=== PATIENT | female | born 1940 | race Caucasian/White ===

== ENCOUNTER → 2017-05-09 | Outpatient (CLI) | payer BC ==
[~2017-05-09] MED LIST: ALLDSR/24 PO; ASMTWH INH; IBUP600T44 PO; MOME50SP5; SNG10 PO
== END | disposition home or self-care (01) ==
LOC: C.PAPS 12:03
PROVIDERS: ATTEND Obstetrics & Gynecology
DX: Z01.419 Encounter for gynecological examination (general) (routine) without abnormal findings (principal)

== ENCOUNTER → 2017-06-24 | Outpatient (CLI) | payer BC ==
--- NOTE | 2017-06-24 15:37 | MAMMOGRAPHY REPORT ---
BILATERAL DIGITAL SCREENING MAMMOGRAM WITH CAD: 06/24/2017 CLINICAL HISTORY: Routine screening. Patient has no complaints. TECHNIQUE: Current study was also evaluated with a Computer Aided Detection (CAD) system. Bilateral CC and MLO views were obtained. COMPARISON: Comparison is made to exams dated: 06/22/2016 mammogram, 06/19/2015 mammogram, 4 mammogram, 06/15/2013 mammogram, 06/14/2012 mammogram, and 06/11/2011 mammogram - [facility]. BREAST COMPOSITION: The tissue of both breasts is heterogeneously dense, which may obscure small mas ses. FINDINGS: No suspicious masses, calcifications, or areas of architectural distortion are noted in ei ther breast. There has been no significant interval change compared to prior exams. IMPRESSION: ACR BI-RADS CATEGORY 1: NEGATIVE There is no mammographic evidence of malignancy. A 1 year screening mammogram is recommended. The pa tient will receive written notification of the results. Approximately 10% of breast cancers are not detected with mammography. A negative mammographic report should not delay biopsy if a clinically suggestive mass is present. Yesy Escalera M.D. /:06/24/2017 12:10:05 Drip Molder: Joanna STOKES(Jomar)(Mateo)(BD), [facility] letter sent: Normal 1/2 BI-RADS Code: ACR BI-RADS Category 1: Negative
== END | disposition home or self-care (01) ==
LOC: C.MAMM 08:36
PROVIDERS: ATTEND Obstetrics & Gynecology
DX: Z12.31 Encounter for screening mammogram for malignant neoplasm of breast (principal)

== ENCOUNTER → 2017-07-08 | Outpatient (CLI) | payer BC | END | disposition home or self-care (01) | LOC: C.RDSM 10:44 | PROVIDERS: ATTEND Physical Medicine & Rehabilitation Sports Medicine | DX: M79.641 Pain in right hand (principal) ==

== ENCOUNTER → 2017-09-05 | Outpatient (CLI) | payer BC | END | disposition home or self-care (01) | LOC: C.RDSM 18:08 | PROVIDERS: ATTEND Physical Medicine & Rehabilitation Sports Medicine | DX: M25.512 Pain in left shoulder (principal) ==

== ENCOUNTER 2021-03-10 10:51 | Observation (INO) ==
[2021-03-10 11:33] LABS: Basophils # (auto) 0.01 K/uL (0-0.2); Basophils % (auto) 0.2 %; Eosinophils # (auto) 0.05 K/uL (0-0.5); Eosinophils % (auto) 0.9 %; Hematocrit (blood only) 40.1 % (37-47); Hemoglobin 13.2 g/dL (12.0-16.0); Lymphocytes # (auto) 1.81 K/uL (1.2-3.4); Lymphocytes % (auto) 33.6 %; Mean Corpuscular Hemoglobin 30.3 pg (25-34); Mean Corpuscular Hgb Conc 32.9 g/dL (32-36); Mean Corpuscular Volume 92.2 fL (80-100); Mean Platelet Volume 10.2 fL (7.4-10.4); Monocytes % (auto) 9.3 %; Neutrophils # (auto) 3.02 K/uL (1.4-6.5); Platelet Count 168 K/uL (130-400); RDW Coefficient of Variation 13.6 % (11.5-14.5); RDW Standard Deviation 45.9 fL (36.4-46.3); Red Blood Count 4.35 M/uL (4.2-5.4); White Blood Count 5.39 K/uL (4.8-10.8)
[2021-03-10 11:39] LABS: Partial Thromboplastin Ratio 0.9; Partial Thromboplastin Time 22.6 Seconds (21.0-31.0); Prothrombin Time 9.8 Seconds (9.0-12.0)
[2021-03-10 11:46] LABS: BUN Creatinine Ratio 28.2 (10-20); Blood Urea Nitrogen 25 mg/dl (7-18); Calcium 9.7 mg/dl (8.5-10.1); Carbon Dioxide 28 mmol/L (21-32); Chloride 106 mmol/L (98-107); Creatinine Clr Calc Pharmacy 39.3 ml/min; Est GFR (African American) 72.4 ml/min; Est GFR (Non-African American) 62.5 ml/min; Glucose 94 mg/dl (70-99); Lipase 200 U/L (73-393); Sodium 136 mmol/L (136-145)
[2021-03-10 11:50] LABS: Troponin I < 0.015 ng/ml (0-0.045)
[2021-03-10 11:56] LABS: D Dimer 820 ug/L FEU (0-500)
--- NOTE | 2021-03-10 12:23 | XRay Report ---
XR chest 1V portable HISTORY: 81 years-old Female Chest Pain acute atypical chest pain COMPARISON: 03/21/2011 TECHNIQUE: Portable AP view of the chest FINDINGS: Cardiomediastinal and hilar silhouettes are within normal limits. No pneumothorax, pleural effusion, airspace consolidation or overt pulmonary edema. Bones appear grossly intact. IMPRESSION: No acute process. ACT 112: Negative or not required by law. The above report was generated using voice recognition software. It may contain grammatical, syntax o r spelling errors. Electronically signed by: Mert Tanner M.D. 03/10/2021 12:21 PM
[2021-03-10] MEDS ORDERED: OPTIRAY 320 125ml IV ONE (12:49)
--- NOTE | 2021-03-10 13:06 | CT Scan Report ---
CT ANGIOGRAPHY OF THE CHEST, PULMONARY EMBOLUS PROTOCOL CLINICAL HISTORY: Mid chest pain radiating to back. Evaluate for pulmonary embolus. COMPARISON STUDY: Chest radiograph March 21, 2011 and March 10, 2021. TECHNIQUE: Following IV administration of 106 mL of Optiray, helical axial images of the chest were o btained utilizing the pulmonary embolus protocol. Maximal intensity projections and sagittal and cor onal reformats were viewed on an independent 3D workstation. IV contrast was administered without co mplication. Automated exposure control was utilized for the study. A dose lowering technique was ut ilized adhering to the principles of ALARA. CT DOSE: 295.76 mGycm FINDINGS: No pulmonary emboli are identified. There is no thoracic aortic dissection. The size of th e heart is normal. There is no pericardial effusion. No enlarged thoracic lymph nodes are present. Th ere is no consolidation to suggest pneumonia. There is a 4 mm solid right upper lobe nodule on image 145 of 283. No pneumothorax or pleural effusion is noted. No acute fracture or suspicious lesion is i dentified within visualized portions of the bony thorax. Upper abdomen is unremarkable on this exam. IMPRESSION: 1. No pleural emboli identified. 2. No thoracic aortic dissection. 3. No acute process within the chest. 4. 4 mm right upper lobe nodule. This is likely benign. A follow-up chest CT in [address] ability is recommended. ACT 112: Negative or not required by law. Electronically signed by: Diallo Jackson M.D. 03/10/2021 1:05 PM
--- NOTE | 2021-03-10 13:37 | Emergency Department Note ---
History of Present Illness General Chief Complaint: Chest Pain Stated Complaint: CHEST PAIN, RADIATES TO SHOULDER BLADES Time Seen by Provider: 03/10/21 11:00 History of Present Illness Provider Complaint: chest pain Time: 08:30 Duration: improved Onset: during rest Pain Location: substernal Pain Radiation: back Severity: moderate Maximum Pain Intensity: 8 Current Pain Intensity: 2 Quality: + heaviness Relieved By: + nothing Exacerbated By: + nothing Context: no recent illness, no recent surgery, no recent immobilization, no recent travel, no trauma/injury or no history of DVT/PE Associated symptoms: + dyspnea; no nausea, no vomiting, no diaphoresis, no syncope, no palpitations, no fever, no cough or no leg swelling Home Medications Medication Instructions Recorded Confirmed Type calcium carbonate 600 mg (1,500 1 tab PO BID tab 05/04/19 03/10/21 History mg)-vitamin D3 200 unit tablet celecoxib 100 mg capsule 100 mg PO DAILY PRN cap 05/04/19 03/10/21 History coenzyme Q10 100 mg capsule 100 mg PO HS cap 05/04/19 03/10/21 History levalbuterol tartrate 45 4 puffs INH Q20M PRN 05/04/19 03/10/21 History mcg/actuation aerosol inhaler (Xopenex HFA) multivit with min-folic 1 tab PO .DAILY@NOON,HS 05/04/19 03/10/21 History acid-lutein 400 mcg-250 mcg chewable tablet (Centrum Silver) rosuvastatin 10 mg tablet 10 mg PO QAM tab 05/04/19 03/10/21 History sodium chloride 0.65 % nasal spray 1 spray INTRANASAL HS ml 05/04/19 03/10/21 History aerosol conjugated estrogens 0.625 mg/gram 0.625 mg PV ONCE #30 gm 06/21/19 03/10/21 Rx vaginal cream (Premarin) montelukast 10 mg tablet 10 mg PO QPM #30 tab 06/21/19 03/10/21 Rx (Singulair) triamcinolone acetonide 0.1 % 1 appln TOP DAILY #15 gm 06/21/19 03/10/21 Rx topical cream cranberry 400 mg capsule 400 mg PO DAILY 03/10/21 03/10/21 History diclofenac sodium 1 % topical gel 2 g TOPICAL TID PRN 03/10/21 03/10/21 History fexofenadine 180 mg tablet 180 mg PO DAILY 03/10/21 03/10/21 History (Rachel Allergy) mometasone (Asmanex Twisthaler) 1 inh INHALATION HS 03/10/21 03/10/21 History turmeric root extract 1,053 mg 1,076 mg PO DAILY 03/10/21 03/10/21 History tablet Allergies Allergy/AdvReac Type Severity Reaction Status Date / Time Penicillins Allergy Mild RASH Verified 03/10/21 12:05 epinephrine Allergy Unknown ` Verified 03/10/21 12:05 Past Med/Surg History Medical History Hx of breast lump Hx of diverticulitis of colon Surgical History S/P cholecystectomy S/P tonsillectomy and adenoidectomy Family History Father Aortic valve replaced Coronary heart disease Alzheimer disease Diabetes Mother Diabetes Dementia Social History Smoking Status: Never smoker Feels Safe at Home: Yes Review of Systems A total of 10 systems reviewed and were otherwise negative Physical Exam Vital Signs Vital Signs - 24 hr 03/10/21 10:54 03/10/21 11:06 03/10/21 11:30 Temperature 36.7 C Temperature Source Temporal Artery Scan Pulse Rate 60 59 L 52 L Pulse Rate from SpO2 Sensor 53 L Respiratory Rate 18 21 12 Blood Pressure 154/89 H 159/90 H 133/66 Blood Pressure Mean 110 113 88 Pulse Oximetry 100 100 100 Oxygen Delivery Method Room Air Sepsis Recent Fever Within 48 Hours No Sepsis New/Unexplained Change in Mental Status No Sepsis Action Taken by Nursing No Action Required 03/10/21 12:00 03/10/21 12:30 03/10/21 13:00 Temperature Temperature Source Pulse Rate 53 L 50 L 54 L Pulse Rate from SpO2 Sensor 52 L 51 L Respiratory Rate 14 13 14 Blood Pressure 116/64 135/65 123/71 Blood Pressure Mean 81 88 88 Pulse Oximetry 100 100 Oxygen Delivery Method Sepsis Recent Fever Within 48 Hours Sepsis New/Unexplained Change in Mental Status Sepsis Action Taken by Nursing Physical Exam GENERAL: She is oriented to person, place, and time. She appears well-developed and well-nourished. She does not appear distressed. HENT: Exam performed. -Head: Normocephalic and atraumatic. -Right Ear: External ear normal. No mastoid tenderness. -Left Ear: External ear normal. No mastoid tenderness. -Mouth/Throat: The oropharynx is clear and moist. No trismus in the jaw. No dental abscesses or uvula swelling. No oropharyngeal exudate or tonsillar abscesses. EYES: Conjunctivae and EOM are normal. Pupils are equal, round, and reactive to light. Right eye exhibits no discharge. Left eye exhibits no discharge. No scleral icterus. NECK: Normal range of motion. Neck supple. No JVD present. No spinous process tenderness present. No carotid bruit present. No rigidity. No tracheal deviation and normal range of motion present. No Brudzinski's sign and no Kernig's sign noted. CV: Normal rate, regular rhythm, normal heart sounds and intact distal pulses. There is no peripheral edema. Palpable radial pulses bue. PULM/CHEST: Effort normal and breath sounds normal. No respiratory distress. No stridor. She has no wheezes. She has no rales. -Chest Wall: She exhibits no tenderness. ABD: The abdomen is soft. Bowel sounds are normal. She has no distension. No mass is present. There is no tenderness. There is no rebound, no guarding, no Vargas's sign and no tenderness at McBurney's point. Rovsig negative MUSC/SKEL: Normal range of motion. There is no peripheral edema, tenderness or deformity. LYMPH: No cervical adenopathy. NEURO: She is alert and oriented to person, place, and time. She has normal strength. No cranial nerve deficit or sensory deficit. Coordination and gait normal. GCS eye subscore is 4. GCS verbal subscore is 5. GCS motor subscore is 6. Cerebellar tests wnl. SKIN: Skin is warm and dry. She is not diaphoretic. PSYCH: She has a normal mood and affect. Behavior is normal. Judgment and thought content normal. Course Course 1100: The patient was evaluated in room B12. A complete history and physical exa m was performed Cardiac monitoring: An order was placed for continuous cardiac monitoring. The monitor shows a rate of 50 with sinus rhythm 1315: Vital signs stable. Labs within normal limits with exception of elevated troponin. CTA of the chest negative for PE and dissection. I went to case alvarezate the patient she states her chest pain has resolved while waiting in the ER. Patient will be admitted for chest pain rule out ACS to [facility] hospitalist Dr. Bennett Administered Medications Discontinued Medications Ioversol (Optiray 320 125ml) 106 ml IV ONCE ONE Stop: 03/10/21 12:50 Last Admin: 03/10/21 12:49 Dose: 106 ml Documented by: [id number] Medical Decision Making Laboratory Data Result diagrams: 03/10/21 11:03 03/10/21 11:03 Labs: Lab Results 03/10/21 03/10/21 03/10/21 Range/Units 11:03 11:03 11:03 WBC 5.39 (4.8-10.8) K/uL RBC 4.35 (4.2-5.4) M/uL Hgb 13.2 (12.0-16.0) g/dL Hct 40.1 (37-47) % MCV 92.2 (80-100) fL MCH 30.3 (25-34) pg MCHC 32.9 (32-36) g/dL RDW Std Deviation 45.9 (36.4-46.3) fL RDW Coeff of Juliette 13.6 (11.5-14.5) % Plt Count 168 (130-400) K/uL MPV 10.2 (7.4-10.4) fL Immature Gran % (Auto) 0.0 % Neut % (Auto) 56.0 % Lymph % (Auto) 33.6 % [place] % (Auto) 9.3 % Eos % (Auto) 0.9 % Baso % (Auto) 0.2 % Neut # (Auto) 3.02 (1.4-6.5) K/uL Lymph # (Auto) 1.81 (1.2-3.4) K/uL [place] # (Auto) 0.50 (0.11-0.59) K/uL Eos # (Auto) 0.05 (0-0.5) K/uL Baso # (Auto) 0.01 (0-0.2) K/uL Immature Gran # (Auto) 0.00 (0.00-0.02) K/uL PT 9.8 (9.0-12.0) Seconds INR 1.0 (0.9-1.1) APTT 22.6 (21.0-31.0) Seconds PTT Ratio 0.9 D-Dimer 820 H* (0-500) ug/L FEU Sodium 136 (136-145) mmol/L Potassium 4.0 (3.5-5.1) mmol/L Chloride 106 (98-107) mmol/L Carbon Dioxide 28 (21-32) mmol/L Anion Gap 2.0 L (3-11) BUN 25 H (7-18) mg/dl Creatinine 0.88 (0.6-1.2) mg/dl Est Cr Clr Drug Dosing 39.3 ml/min Est GFR ( Amer) 72.4 ml/min Est GFR (Non-Af Amer) 62.5 ml/min BUN/Creatinine Ratio 28.2 H (10-20) Glucose 94 (70-99) mg/dl Calcium 9.7 (8.5-10.1) mg/dl Troponin I < 0.015 (0-0.045) ng/ml Lipase 200 (73-393) U/L Imaging Data Chest x-ray: Radiologist's impression: Chest X-Ray 03/10/21 11:20 XR chest 1V portable HISTORY: 81 years-old Female Chest Pain acute atypical chest pain COMPARISON: 03/21/2011 TECHNIQUE: Portable AP view of the chest FINDINGS: Cardiomediastinal and hilar silhouettes are within normal limits. No pneumothorax, pleural effusion, airspace consolidation or overt pulmonary edema. Bones appear grossly intact. IMPRESSION: No acute process. ACT 112: Negative or not required by law. The above report was generated using voice recognition software. It may contain grammatical, syntax or spelling errors. Electronically signed by: Mert Tanner M.D. 03/10/2021 12:21 PM Chest CTA 03/10/21 12:03 CT ANGIOGRAPHY OF THE CHEST, PULMONARY EMBOLUS PROTOCOL CLINICAL HISTORY: Mid chest pain radiating to back. Evaluate for pulmonary embolus. COMPARISON STUDY: Chest radiograph March 21, 2011 and March 10, 2021. TECHNIQUE: Following IV administration of 106 mL of Optiray, helical axial images of the chest were obtained utilizing the pulmonary embolus protocol. Maximal intensity projections and sagittal and coronal reformats were viewed on an independent 3D workstation. IV contrast was administered without compl ication. Automated exposure control was utilized for the study. A dose lowering technique was utilized adhering to the principles of ALARA. CT DOSE: 295.76 mGycm FINDINGS: No pulmonary emboli are identified. There is no thoracic aortic dissection. The size of the heart is normal. There is no pericardial effusion. No enlarged thoracic lymph nodes are present. There is no consolidation to suggest pneumonia. There is a 4 mm solid right upper lobe nodule on image 145 of 283. No pneumothorax or pleural effusion is noted. No acute fracture or suspicious lesion is identified within visualized portions of the bony thorax. Upper abdomen is unremarkable on this exam. IMPRESSION: 1. No pleural emboli identified. 2. No thoracic aortic dissection. 3. No acute process within the chest. 4. 4 mm right upper lobe nodule. This is likely benign. A follow-up chest CT in [address]ability is recommended. ACT 112: Negative or not required by law. Electronically signed by: Diallo Jackson M.D. 03/10/2021 1:05 PM ECG Data Indication: chest pain Rate (beats per minute): 51 Rhythm: normal sinus Findings: no ST depression, no ST elevation or no prolonged QT MDM Narrative Vital signs stable. Labs within normal limits with exception of elevated troponin. CTA of the chest negative for PE and dissection. I went to reevaluate the patient she states her chest pain has resolved while waiting in the ER. Patient will be admitted for chest pain rule out ACS to [facility] hospitalist Dr. Bennett Impression & Plan Chest pain Discharge Plan Visit Data Chief Complaint: Chest Pain Stated Complaint: CHEST PAIN, RADIATES TO SHOULDER BLADES ED Provider: Marty Pulido Discharge Problem: Chest pain Patient Disposition: Being Evaluated by Hospitalist Forms Stand Alone Forms: My [facility] Prescriptions Prescriptions: No Action montelukast [Singulair] 10 mg tablet 10 mg PO QPM Qty: 30 RF: 2 triamcinolone acetonide 0.1 % cream 1 appln TOP DAILY Qty: 15 RF: 0 calcium carbonate-vitamin D3 600 mg(1,500mg) -200 unit tablet 1 tab PO BID RF: 0 celecoxib 100 mg capsule 100 mg PO DAILY PRN (Reason: Hand Pain) RF: 0 Centrum Silver 400-250 mcg tablet,chewable 1 tab PO .DAILY@NOON,HS RF: 0 coenzyme Q10 100 mg capsule 100 mg PO HS RF: 0 rosuvastatin 10 mg tablet 10 mg PO QAM RF: 0 sodium chloride 0.65 % aerosol,spray 1 spray intranasal HS RF: 0 levalbuterol tartrate [Xopenex HFA] 45 mcg/actuation HFA aerosol inhaler 4 puffs INH Q20M PRN (Reason: Shortnes of Breath) RF: 0 Premarin 0.625 mg/gram cream 0.625 mg PV ONCE Qty: 30 RF: 4 fexofenadine [Rachel Allergy] 180 mg Tablet 180 mg PO DAILY RF: 0 cranberry 400 mg Capsule 400 mg PO DAILY RF: 0 Asmanex Twisthaler 220 mcg/ actuation (30) aerosol powdr breath activated 1 inh INHALATION HS RF: 0 diclofenac sodium 1 % gel 2 g TOPICAL TID PRN (Reason: Pain) RF: 0 turmeric root extract 1,053 mg Tablet 1,076 mg PO DAILY RF: 0 Referrals Referrals: Farhan Lang [Primary Care Provider] -
--- NOTE | 2021-03-10 14:42 | History & Physical Report ---
Date of Service March 10, 2021 Assessment & Plan (1) Chest pain: Plan: Placed in monitored observation Trend troponins Check EKG in the morning Check hemoglobin A1c, TSH Start aspirin 81 mg daily If negative, plan for stress echocardiogram tomorrow Patient advised to make staff aware if she has any further chest pain (2) Hypercholesteremia: Plan: Continue Crestor or pharmacy equivalent Check fasting lipid panel History of Present Illness Chief Complaint: Chest pain Primary Care Provider: Farhan Lang This is a 81-year-old female with past medical history of hypercholesterolemia and allergic rhinitis that presents today complaining of chest pain. Patient is coming by her , both are good historians. Patient tells me that she was doing fine until earlier this morning. She ate breakfast along with coffee and had approximately 1 hour of epigastric, midsternal chest pain. This was a sharp, crampy type pain. There is radiation to her center back near her shoulder blades. There were no other associated symptoms such as shortness of breath, palpitations, diaphoresis, nausea, vomiting, or vertigo. Pain lasted approximately 1 hour, resolved after the patient's gave her 2 325 mg aspirins. Patient came to the emergency room and has been stable since. During my evaluation, patient is no acute cardiopulmonary distress. Vital signs are stable. Patient has experienced no other symptoms since arriving. is requesting cardiac consultation with Dr. Amezquita who is his outpatient analyst. Allergies Allergy/AdvReac Type Severity Reaction Status Date / Time Penicillins Allergy Mild RASH Verified 03/10/21 12:05 epinephrine Allergy Unknown ` Verified 03/10/21 12:05 Home Medications Medication Instructions Recorded Confirmed Type calcium carbonate 600 mg (1,500 1 tab PO BID tab 05/04/19 03/10/21 History mg)-vitamin D3 200 unit tablet celecoxib 100 mg capsule 100 mg PO DAILY PRN cap 05/04/19 03/10/21 History coenzyme Q10 100 mg capsule 100 mg PO HS cap 05/04/19 03/10/21 History levalbuterol tartrate 45 4 puffs INH Q20M PRN 05/04/19 03/10/21 History mcg/actuation aerosol inhaler (Xopenex HFA) multivit with min-folic 1 tab PO .DAILY@NOON,HS 05/04/19 03/10/21 History acid-lutein 400 mcg-250 mcg chewable tablet (Centrum Silver) rosuvastatin 10 mg tablet 10 mg PO QAM tab 05/04/19 03/10/21 History sodium chloride 0.65 % nasal spray 1 spray INTRANASAL HS ml 05/04/19 03/10/21 History aerosol conjugated estrogens 0.625 mg/gram 0.625 mg PV ONCE #30 gm 06/21/19 03/10/21 Rx vaginal cream (Premarin) montelukast 10 mg tablet 10 mg PO QPM #30 tab 06/21/19 03/10/21 Rx (Singulair) triamcinolone acetonide 0.1 % 1 appln TOP DAILY #15 gm 06/21/19 03/10/21 Rx topical cream cranberry 400 mg capsule 400 mg PO DAILY 03/10/21 03/10/21 History diclofenac sodium 1 % topical gel 2 g TOPICAL TID PRN 03/10/21 03/10/21 History fexofenadine 180 mg tablet 180 mg PO DAILY 03/10/21 03/10/21 History (Rachel Allergy) mometasone (Asmanex Twisthaler) 1 inh INHALATION HS 03/10/21 03/10/21 History turmeric root extract 1,053 mg 1,076 mg PO DAILY 03/10/21 03/10/21 History tablet Past Med/Surg History Medical History Hx of breast lump Hx of diverticulitis of colon Surgical History S/P cholecystectomy S/P tonsillectomy and adenoidectomy Family History Father Aortic valve replaced Coronary heart disease Alzheimer disease Diabetes Mother Diabetes Dementia Social History Smoking Status: Never smoker Feels Safe at Home: Yes Review of Systems Constitutional: no fever, no chills, no weakness, no weight loss and no weight gain Eyes: as per Subjective / HPI Respiratory: no cough, no chest congestion, no dyspnea and no dyspnea on exertion Cardiovascular: + chest pain and + radiating jaw, neck or arm pain; no chest pain with activity, no dyspnea at rest, no orthopnea, no palpitations, no lightheadedness, no syncope and no edema Gastrointestinal: no abdominal pain, no nausea, no vomiting, no constipation and no diarrhea/loose stools Genitourinary: no dysuria, no difficulty urinating, no urinary frequency, no urinary hesitancy, no urinary urgency and no flank pain Musculoskeletal: no back pain, no neck pain, no joint pain, no stiffness and no myalgia Integumentary: no rash Neurologic: no gait abnormality, no unsteadiness, no falls and no generalized weakness Physical Exam Constitutional: cooperative; no acute distress Neck: trachea midline, no thyromegaly Respiratory: normal respiratory effort Auscultation: lungs clear to auscultation bilaterally; no crackles, no rales, no rhonchi and no wheezes Cardiovascular: Rate/Rhythm: regular rate and regular rhythm Heart Sounds: normal S1 and normal S2 Gastrointestinal (Abdomen): Inspection/Auscultation: abdomen normal to i nspection Percussion/Palpation: abdomen soft; abdomen nontender, no guarding, abdomen not rigid and no hepatosplenomegaly Skin: no rashes, warm and dry Results & Data Results & Data ([facility]) Vital Signs (Past 12 Hours) Vital Signs Temp Pulse Resp BP Pulse Ox 03/10/21 14:00 54 L 14 108/63 98 03/10/21 13:30 50 L 12 130/66 97 03/10/21 13:00 54 L 14 123/71 03/10/21 12:30 50 L 13 135/65 100 03/10/21 12:00 53 L 14 116/64 100 03/10/21 11:30 52 L 12 133/66 100 03/10/21 11:06 59 L 21 159/90 H 100 03/10/21 10:54 36.7 C 60 18 154/89 H 100 Laboratory Results Laboratory Results WBC 5.39 K/uL (4.8-10.8) 03/10/21 11:03 RBC 4.35 M/uL (4.2-5.4) 03/10/21 11:03 Hgb 13.2 g/dL (12.0-16.0) 03/10/21 11:03 Hct 40.1 % (37-47) 03/10/21 11:03 MCV 92.2 fL (80-100) 03/10/21 11:03 MCH 30.3 pg (25-34) 03/10/21 11:03 MCHC 32.9 g/dL (32-36) 03/10/21 11:03 RDW Std Deviation 45.9 fL (36.4-46.3) 03/10/21 11:03 RDW Coeff of Juliette 13.6 % (11.5-14.5) 03/10/21 11:03 Plt Count 168 K/uL (130-400) 03/10/21 11:03 MPV 10.2 fL (7.4-10.4) 03/10/21 11:03 Immature Gran % (Auto) 0.0 % 03/10/21 11:03 Neut % (Auto) 56.0 % 03/10/21 11:03 Lymph % (Auto) 33.6 % 03/10/21 11:03 Stearns % (Auto) 9.3 % 03/10/21 11:03 Eos % (Auto) 0.9 % 03/10/21 11:03 Baso % (Auto) 0.2 % 03/10/21 11:03 Neut # (Auto) 3.02 K/uL (1.4-6.5) 03/10/21 11:03 Lymph # (Auto) 1.81 K/uL (1.2-3.4) 03/10/21 11:03 Stearns # (Auto) 0.50 K/uL (0.11-0.59) 03/10/21 11:03 Eos # (Auto) 0.05 K/uL (0-0.5) 03/10/21 11:03 Baso # (Auto) 0.01 K/uL (0-0.2) 03/10/21 11:03 Immature Gran # (Auto) 0.00 K/uL (0.00-0.02) 03/10/21 11:03 PT 9.8 Seconds (9.0-12.0) 03/10/21 11:03 INR 1.0 (0.9-1.1) 03/10/21 11:03 APTT 22.6 Seconds (21.0-31.0) 03/10/21 11:03 PTT Ratio 0.9 03/10/21 11:03 D-Dimer 820 ug/L FEU (0-500) H* 03/10/21 11:03 Sodium 136 mmol/L (136-145) 03/10/21 11:03 Potassium 4.0 mmol/L (3.5-5.1) 03/10/21 11:03 Chloride 106 mmol/L (98-107) 03/10/21 11:03 Carbon Dioxide 28 mmol/L (21-32) 03/10/21 11:03 Anion Gap 2.0 (3-11) L 03/10/21 11:03 BUN 25 mg/dl (7-18) H 03/10/21 11:03 Creatinine 0.88 mg/dl (0.6-1.2) 03/10/21 11:03 Est Cr Clr Drug Dosing 39.3 ml/min 03/10/21 11:03 Est GFR ( Amer) 72.4 ml/min 03/10/21 11:03 Est GFR (Non-Af Amer) 62.5 ml/min 03/10/21 11:03 BUN/Creatinine Ratio 28.2 (10-20) H 03/10/21 11:03 Glucose 94 mg/dl (70-99) 03/10/21 11:03 Calcium 9.7 mg/dl (8.5-10.1) 03/10/21 11:03 Troponin I < 0.015 ng/ml (0-0.045) 03/10/21 11:03 Lipase 200 U/L (73-393) 03/10/21 11:03 COVID-19 Eval Order Covid19 at [facility] 03/10/21 13:25 Impressions Chest X-Ray 03/10/21 11:20 XR chest 1V portable HISTORY: 81 years-old Female Chest Pain acute atypical chest pain COMPARISON: 03/21/2011 TECHNIQUE: Portable AP view of the chest FINDINGS: Cardiomediastinal and hilar silhouettes are within normal limits. No pneumothorax, pleural effusion, airspace consolidation or overt pulmonary edema. Bones appear grossly intact. IMPRESSION: No acute process. ACT 112: Negative or not required by law. The above report was generated using voice recognition software. It may contain grammatical, syntax or spelling errors. Electronically signed by: Mert Tanner M.D. 03/10/2021 12:21 PM Chest CTA 03/10/21 12:03 CT ANGIOGRAPHY OF THE CHEST, PULMONARY EMBOLUS PROTOCOL CLINICAL HISTORY: Mid chest pain radiating to back. Evaluate for pulmonary embolus. COMPARISON STUDY: Chest radiograph March 21, 2011 and March 10, 2021. TECHNIQUE: Following IV administration of 106 mL of Optiray, helical axial images of the chest were obtained utilizing the pulmonary embolus protocol. Maximal intensity projections and sagittal and coronal reformats were viewed on an independent 3D workstation. IV contrast was administered without complication. Automated exposure control was utilized for the study. A dose lowering technique was utilized adhering to the principles of ALARA. CT DOSE: 295.76 mGycm FINDINGS: No pulmonary emboli are identified. There is no thoracic aortic dissection. The size of the heart is normal. There is no pericardial effusion. No enlarged thoracic lymph nodes are present. There is no consolidation to suggest pneumonia. There is a 4 mm solid right upper lobe nodule on image 145 of 283. No pneumothorax or pleural effusion is noted. No acute fracture or suspicious lesion is identified within visualized portions of the bony thorax. Upper abdomen is unremarkable on this exam. IMPRESSION: 1. No pleural emboli identified. 2. No thoracic aortic dissection. 3. No acute process within the chest. 4. 4 mm right upper lobe nodule. This is likely benign. A follow-up chest CT in [address]ability is recommended. ACT 112: Negative or not required by law. Electronically signed by: Diallo Jackson M.D. 03/10/2021 1:05 PM PG Care Time/CCT Total # of Minutes Spent Total Time Spent with Patient: Total time spent is greater than 50% in coordination of care (as documented) at patient's floor/unit and/or counseling patient: Coding Level of Care Code INT OBSERVATION CARE 70M LVL 3 Diagnoses Chest pain R07.9 Chest pain type: unspecified Hypercholesteremia E78.00 (1) Chest pain Chest pain type: unspecified Qualified Code(s): R07.9 - Chest pain, unspecified
[2021-03-10] MEDS ORDERED: ALUMINUM/MAGNESIUM SUSP 30 ML UDC PO PRN (17:39)
[2021-03-10] MEDS ORDERED: ONDANSETRON INJ 2 MG/ML 2 ML VIAL IV PRN (17:39)
[2021-03-10] MEDS ORDERED: ACETAMINOPHEN 325 MG TAB PO PRN (17:39)
[2021-03-10] MEDS: CEROVITE ADV FORMULA TAB PO SCH (18:34)
[2021-03-10] MEDS ORDERED: NON-FORMULARY MEDICATION (Coenzyme Q10 100 mg capsule) PO SCH (21:00)
[2021-03-10] MEDS ORDERED: SODIUM CHLORIDE 0.65% NA SOLN 45 ML (OCEAN) SCH (21:00)
[2021-03-10] MEDS ORDERED: MONTELUKAST SODIUM 10 MG TABLET PO SCH (21:00)
[2021-03-10] MEDS ORDERED: FLUTICASONE FUROATE 100MCG 14 PUFFS/INHALER INH SCH (21:00)
[2021-03-10] MEDS: CALCIUM 600MG + VIT D 400 IU TAB PO SCH (22:44)
[2021-03-11] MEDS: CALCIUM 600MG + VIT D 400 IU TAB PO SCH (07:40)
[2021-03-11] MEDS: CEROVITE ADV FORMULA TAB PO SCH (07:40)
[2021-03-11 08:32] LABS: Basophils # (auto) 0.01 K/uL (0-0.2); Basophils % (auto) 0.2 %; Eosinophils # (auto) 0.06 K/uL (0-0.5); Eosinophils % (auto) 1.3 %; Hematocrit (blood only) 43.6 % (37-47); Hemoglobin 14.6 g/dL (12.0-16.0); Lymphocytes # (auto) 1.69 K/uL (1.2-3.4); Lymphocytes % (auto) 37.8 %; Mean Corpuscular Hemoglobin 30.7 pg (25-34); Mean Corpuscular Hgb Conc 33.5 g/dL (32-36); Mean Corpuscular Volume 91.6 fL (80-100); Mean Platelet Volume 10.1 fL (7.4-10.4); Monocytes # (auto) 0.34 K/uL (0.11-0.59); Monocytes % (auto) 7.6 %; Neutrophils # (auto) 2.37 K/uL (1.4-6.5); Neutrophils % (auto) 53.1 %; Platelet Count 180 K/uL (130-400); RDW Coefficient of Variation 13.4 % (11.5-14.5); RDW Standard Deviation 45.5 fL (36.4-46.3); Red Blood Count 4.76 M/uL (4.2-5.4); White Blood Count 4.47 K/uL (4.8-10.8)
[2021-03-11 08:49] LABS: Estimated Average Glucose 117 mg/dl; Hemoglobin A1C 5.7 % (4.5-5.6)
[2021-03-11] MEDS ORDERED: ASPIRIN 81 MG ECTAB PO SCH (09:00)
[2021-03-11] MEDS ORDERED: ROSUVASTATIN CALCIUM 10 MG TAB PO SCH (09:00)
[2021-03-11] MEDS ORDERED: FEXOFENADINE HCL 180 MG TAB PO SCH (09:00)
[2021-03-11 09:22] LABS: Calcium 10.2 mg/dl (8.5-10.1); Creatinine Clr Calc Pharmacy 39.1 ml/min; Est GFR (African American) 76.6 ml/min; Est GFR (Non-African American) 66.1 ml/min; Potassium 3.8 mmol/L (3.5-5.1)
--- NOTE | 2021-03-11 12:25 | Discharge Summary ---
Date of Service March 11, 2021 Admission HPI Per Admitting Provider This is a 81-year-old female with past medical history of hypercholesterolemia and allergic rhinitis that presents today complaining of chest pain. Patient is coming by her , both are good historians. Patient tells me that she was doing fine until earlier this morning. She ate breakfast along with coffee and had approximately 1 hour of epigastric, midsternal chest pain. This was a sharp, crampy type pain. There is radiation to her center back near her shoulder blades. There were no other associated symptoms such as shortness of breath, palpitations, diaphoresis, nausea, vomiting, or vertigo. Pain lasted approximately 1 hour, resolved after the patient's gave her 2 325 mg aspirins. Patient came to the emergency room and has been stable since. During my evaluation, patient is no acute cardiopulmonary distress. Vital signs are stable. Patient has experienced no other symptoms since arriving. is requesting cardiac consultation with Dr. Amezquita who is his outpatient control room technician. Admission Exam Per Admitting Provider General: cooperative; no acute distress Neck: trachea midline, no thyromegaly Respiratory: normal respiratory effort Auscultation: lungs clear to auscultation bilaterally; no crackles, no rales, no rhonchi and no wheezes Cardiovascular: Rate/Rhythm: regular rate and regular rhythm Heart Sounds: normal S1 and normal S2 Gastrointestinal (Abdomen): Inspection/Auscultation: abdomen normal to inspection Percussion/Palpation: abdomen soft; abdomen nontender, no guarding, abdomen not rigid and no hepatosplenomegaly Skin: no rashes, warm and dry Principal Diagnosis Chest pain due to musculoskeletal causes Discharge Exam Constitutional cooperative; no acute distress Neck trachea midline, no thyromegaly Respiratory normal respiratory effort Auscultation: lungs clear to auscultation bilaterally; no crackles, no rales, no rhonchi and no wheezes Cardiovascular Rate/Rhythm: regular rate and regular rhythm Heart Sounds: normal S1 and normal S2 Gastrointestinal (Abdomen) Inspection/Auscultation: abdomen normal to inspection Percussion/Palpation: abdomen soft; abdomen nontender, no guarding, abdomen not rigid and no hepatosplenomegaly Musculoskeletal Some pain to palpation in right subscapular region, 5/5 strength in UE and LE b/l, sensation intact throughout Skin no rashes, warm and dry Discharge Data Allergies Allergy/AdvReac Type Severity Reaction Status Date / Time Penicillins Allergy Mild RASH Verified 03/10/21 12:05 epinephrine Allergy Unknown ` Verified 03/10/21 12:05 Consultations 03/10/21 13:15 ED Decision to Admit Stat Ordered Studies 03/10/21 12:03 CT angio chest PE protocol Stat Hospital Course (1) Chest pain: Pt hospitalized from 03/10 to 03/11 for chest pain. EKGs, serial troponins non-concerning for acute UT. HbA1C 5.7%, lipid panel wnl. Patient's symptoms re solved within few hours of admission, started on aspirin 81 mg and continued home statin. Had stress echocardiogram in AM- benign, low suspicion for coronary artery disease. Pt medically stable during stay, discharged after negative stress test. Total Time Total Time Spent Total Time Spent (In Minutes): Less than 30 Discharge Plan Discharge Items Patient Disposition: Home - Self-Care Reason For Visit: CHEST PAIN Discharge Diagnosis: Stable angina Activity: Resume your previous activity Non-emergency contact: Primary Care Provider Call non-emergency contact if: you have any medication questions, your symptoms worsen, your pain is not controlled, your pain is worsening and your pain is concerning for you Follow-up/Referrals: Farhan Lang [Primary Care Provider] - 03/17/21 10:50 am (Appointment with Dr. Homer Davenport) Diet: Regular Addtl Attending Provider Instructions: You were admitted to the hospital for chest pain. Chest pain -You had labwork to check your heart enzymes for signs of stress. These levels stayed normal which indicates that you did not have a heart attack. -You had a stress test, which also did not show signs of any heart stress or damage. A discharge summary will be sent to your primary care physician to ensure continuity of care. Please bring this discharge summary with you to your next office appointment so that your provider can review it at that time. Follow-up appointments: Make a follow-up appointment with your PCP within the next week. It is very important that you follow up with them shortly after discharge from the hospital. Please discuss your chest pain Medications: Your medication list has been reviewed and reconciled upon discharge to ensure accuracy and continuity of care. An updated list of all your medications is included with your hospital discharge paperwork. Please review this list closely, and make note of any changes. Take your medications as instructed; do not skip a dose of your medicines. Make sure all of your doctors know every medicine you are taking (including [id number] medicines, vitamins, and supplements). Call your primary care provider before taking any new medicines (including [id number] medicines, vitamins, and supplements), because some of these may interact with your current medications, or may make your symptoms worse. Tell your primary care provider if you cannot afford your medications. CONTACT YOUR PRIMARY CARE PROVIDER if you experience any of the following: Chest pain Shortness of breath Lightheadedness/dizziness Back pain Difficulty following your treatment plan, or difficulty taking medications CALL 911 OR GO TO THE EMERGENCY DEPARTMENT if you experience any of the following: Sudden, severe abdominal pain or nausea/vomiting Severe chest pain, or chest pain that radiates (moves) to your jaw or arm Sudden, severe shortness of breath or difficulty breathing Thank you for allowing us to participate in your care. Pending Studies at Discharge: No Stand-Alone Forms: My [facility] [employer], Smoking Cessation Medications and DC Order Prescriptions: Continued montelukast [Singulair] 10 mg tablet 10 mg PO QPM Qty: 30 RF: 2 triamcinolone acetonide 0.1 % cream 1 appln TOP DAILY Qty: 15 RF: 0 calcium carbonate-vitamin D3 600 mg(1,500mg) -200 unit tablet 1 tab PO BID RF: 0 celecoxib 100 mg capsule 100 mg PO DAILY PRN (Reason: Hand Pain) RF: 0 Centrum Silver 400-250 mcg tablet,chewable 1 tab PO .DAILY@NOON,HS RF: 0 coenzyme Q10 100 mg capsule 100 mg PO HS RF: 0 rosuvastatin 10 mg tablet 10 mg PO QAM RF: 0 sodium chloride 0.65 % aerosol,spray 1 spray intranasal HS RF: 0 levalbuterol tartrate [Xopenex HFA] 45 mcg/actuation HFA aerosol inhaler 4 puffs INH Q20M PRN (Reason: Shortnes of Breath) RF: 0 Premarin 0.625 mg/gram cream 0.625 mg PV ONCE Qty: 30 RF: 4 fexofenadine [Rachel Allergy] 180 mg Tablet 180 mg PO DAILY RF: 0 cranberry 400 mg Capsule 400 mg PO DAILY RF: 0 Asmanex Twisthaler 220 mcg/ actuation (30) aerosol powdr breath activated 1 inh INHALATION HS RF: 0 diclofenac sodium 1 % gel 2 g TOPICAL TID PRN (Reason: Pain) RF: 0 turmeric root extract 1,053 mg Tablet 1,076 mg PO DAILY RF: 0 Discharge Orders: Discharge Order (Routine); Ordered 03/11/21 Ordered By: Lorne Rutherford Admission Data Admit Date/Time: 03/10/21 14:44 Attending Provider: Tre Pollock Admit Provider: Carlos Bennett Primary Care Provider: Farhan Lang Other Providers: Carlos Bennett Other Interventions: Discharge Summary Assessment (RN) Last Done: 03/11/21 15:05 Supervising Physician Co-Signing Physician Notes I personally examined the patient and verified all rodriguez points of history and exam, discussed case, and agree with decision making with Dr Davenport. Feeling better. Stress test reportedly reassuring. Very much wants to go home. Vitals noted, in general she is awake and alert pleasant no distress. HEENT normocephalic atraumatic mucous membranes moist. Breathing unlabored no accessory muscle use good effort. Skin shows no rashes no pallor or icterus. Neuro without focal deficits. Chest painalmost certainly upper GI. Has not recurred. Safe/stable for home. Her pain lasted easily and hours troponins negative making UT exceedingly unlikely, and even more the stress test being reassuring adds to the fact this appears to be noncardiac. Mildly impaired glucose toleranceshe discussed the difficulty maintaining weight with recommended lifestyle changes. We discussed the risks and benefits of trying to prevent becoming diabeticgiven how long it may take for hyperglycemic microvascular ischemia to take hold, versus issues she might run into with being underweight. Discussed that she can talk about this further with her PCP, but that revisiting the risk benefit of her approach would probably be worthwhile. Stable for home. Otherwise as above. Resident Activity Tracking Resident Involvement: Resident Care Provided Care Provided: Adult Hospital Medicine
--- NOTE | 2021-03-11 19:04 | Billing Data ---
Date of Service March 11, 2021 Coding Level of Care Code 74494 OBS Care - Discharge
--- NOTE | 2021-03-11 20:10 | XCELERA ---
[id number] \\[id number]
--- NOTE | 2021-03-13 05:53 | Electrocardiogram Report ---
Test Reason : Blood Pressure : / mmHG Vent. Rate : 051 BPM Atrial Rate : 051 BPM P-R Int : 136 ms QRS Dur : 080 ms QT Int : 414 ms P-R-T Axes : 073 056 056 degrees QTc Int : 381 ms Sinus bradycardia Otherwise normal ECG When compared with ECG of 21-MAR-2011 14:28, No significant change was found Confirmed by Manuel Phan ([id number]) on 03/13/2021 5:53:22 AM Referred By: Confirmed By:Manuel Phan
== END 2021-03-11 15:10 | disposition home or self-care (01) ==
LOC: ED 10:51 → 2W 10:51 → SUATTDRO 14:44 → 2W 16:55

== ENCOUNTER 2025-04-13 19:31 | Inpatient (IN) ==
[2025-04-13] MEDS: ACETAMINOPHEN 1,000 MG/100 ML VIAL IV STA (19:55)
[2025-04-13] MEDS: KETOROLAC TROMETHAMINE 15 MG/ML VIAL IV STA (19:55)
--- NOTE | 2025-04-13 19:57 | Emergency Department Note ---
History of Present Illness General Chief complaint: Back Injury/Pain Stated complaint: Right back pain Time Seen by Provider: 04/13/25 19:39 History of Present Illness Maximum Pain Intensity: 9 This 85-year-old female presents ER complaining of severe right lower back pain that radiates down her right leg for the past week. Patient went to the PCP and was given pain meds which did not help. She cannot recall the name of the medicine. Patient denies loss of bowel or bladder control, saddle esthesia, fever, chills, leg weakness, trauma to the area. Home Medications Medication Instructions Recorded Confirmed Type coenzyme Q10 100 mg capsule 100 mg PO HS 05/04/19 04/13/25 History rosuvastatin 5 mg tablet 5 mg PO QAM 08/04/21 04/13/25 History ebymaijvjgjt-dmawdmen-hcalfb tablet 1 tab PO QAM 01/05/23 04/13/25 History donepezil 10 mg tablet 10 mg PO HS 04/13/25 04/13/25 History Allergies Allergy/AdvReac Type Severity Reaction Status Date / Time Penicillins Allergy Mild RASH Verified 01/17/23 06:12 epinephrine AdvReac Unknown "gave me Verified 01/17/23 06:12 the shakes" Past Med/Surg History Problem List Intractable low back pain (Acute) Subclinical hypothyroidism Hypercholesteremia Chest pain (Acute) Medical History Osteoarthritis Osteopenia HLD (hyperlipidemia) History of supraventricular tachycardia follows with Dr. Stauffer Asthma Chronic rhinitis Hx of diverticulitis of colon Surgical History History of cataract surgery History of tonsillectomy and adenoidectomy History of cholecystectomy History of cardiac radiofrequency ablation Family History Father Aortic valve replaced Coronary heart disease Alzheimer disease Diabetes Pacemaker Mother Diabetes Dementia Macular degeneration Osteoarthritis Osteoporosis Stroke Brother Arteriosclerosis Cancer Cardiovascular disease Diabetes Social History Smoking Status: Never smoker Second Hand Exposure: No; Do You Dip or Chew Tobacco: No; Hx Alcohol Use: No Hx Substance Use: No Preferred Language: Japanese Communication Ability: Effective Mess Attendant Required: No Beliefs That Will Affect Care: None Current Living Situation: Spouse Feels Safe at Home: Yes Assistive Devices: Glasses Review of Systems A total of 10 systems reviewed and were otherwise negative Physical Exam Vital Signs Vital Signs - 24 hr 04/13/25 19:38 04/13/25 19:53 04/13/25 21:30 Temperature 36.9 C Temperature Source Oral Pulse Rate 61 63 Pulse Rate [Apical] 59 L Pulse Rhythm Regular Pulse Rhythm [Apical] Regular Pulse Strength [Apical] Normal Respiratory Rate 19 18 Respiratory Effort / Characteristics Non-Labored Spontaneous Non-Labored Spontaneous Respiratory Depth Normal Normal Respiratory Pattern Regular Blood Pressure 156/76 H Blood Pressure [Left Arm] 117/61 Blood Pressure Mean 102 Blood Pressure Mean [Left Arm] 79 Blood Pressure Position [Left Arm] Pulse Oximetry 99 100 Oxygen Delivery Method Room Air Room Air Sepsis Recent Fever Within 48 Hours No Sepsis New/Unexplained Change in Mental Status N/A Sepsis Action Taken by Nursing No Action Required 04/13/25 23:32 Temperature Temperature Source Pulse Rate Pulse Rate [Apical] 63 Pulse Rhythm Pulse Rhythm [Apical] Pulse Strength [Apical] Respiratory Rate 16 Respiratory Effort / Characteristics Non-Labored Spontaneous Respiratory Depth Normal Respiratory Pattern Regular Blood Pressure Blood Pressure [Left Arm] 141/66 H Blood Pressure Mean Blood Pressure Mean [Left Arm] 91 Blood Pressure Position [Left Arm] Lying Pulse Oximetry 96 Oxygen Delivery Method Room Air Sepsis Recent Fever Within 48 Hours Sepsis New/Unexplained Change in Mental Status Sepsis Action Taken by Nursing VITALS: Vitals are noted on the nurse's note and reviewed by myself. Vital signs stable. GENERAL: Pleasant female, in no acute distress, nondiaphoretic, well-developed well-nourished. SKIN: Capillary reflex less than 2 seconds. HEENT: Normocephalic. PERRLA. EOMI. Nares patent. Mucous membranes moist. Neck is supple without nuchal rigidity. HEART: Regular rate and rhythm LUNGS: Clear to auscultation bilaterally without wheezes, rales or rhonchi. No retractions or accessory muscle use. ABDOMEN: Positive bowel sounds x 4. Normal tympanic percussion. Soft, nontender, without masses or organomegaly. Vargas sign negative. No guarding or rebound tenderness. no CVA tenderness MUSCULOSKELETAL: No gross musculoskeletal defects. No thoracic or lumbar tenderness on exam. Positive straight leg raise on the right. Negative on the left. Patient plantarflex and dorsiflex. Sensation is intact. NEURO: Patient was alert and oriented to person place and time. No focal neurological deficits. Course Administered Medications Discontinued Medications Acetaminophen (Ofirmev) 1,000 mg in 100 mls @ 400 mls/hr IV NOW STA Stop: 04/13/25 19:59 Last Infusion: 04/13/25 20:12 Dose: Infused Documented By: Admin: 04/13/25 19:55 Dose: 400 mls/hr Documented By: RACHID Ketorolac Tromethamine (Ketorolac Tromethamine 15 Mg/Ml Vial) 10 mg IV ONE STA Stop: 04/13/25 19:46 Last Admin: 04/13/25 19:55 Dose: 10 mg Documented By: RACHID Morphine Sulfate (Morphine Sulfate 4 Mg/Ml 1 Ml Carp\\Vial) 4 mg IV NOW STA Stop: 04/13/25 20:44 Last Admin: 04/13/25 20:50 Dose: 4 mg Documented By: LEIGH ANN Morphine Sulfate (Morphine Sulfate 4 Mg/Ml 1 Ml Carp\\Vial) 4 mg IV NOW STA Stop: 04/13/25 22:56 Last Admin: 04/13/25 23:25 Dose: 4 mg Documented By: Ondansetron HCl (Ondansetron Inj 2 Mg/Ml 2 Ml Vial) Confirm Administered Dose 4 mg .ROUTE .STK-MED ONE Stop: 04/13/25 20:57 Last Admin: 04/13/25 20:59 Dose: Not Given Documented By: LEIGH ANN Ondansetron HCl (Ondansetron Inj 2 Mg/Ml 2 Ml Vial) 4 mg IV NOW STA Stop: 04/13/25 20:56 Last Admin: 04/13/25 20:59 Dose: 4 mg Documented By: LEIGH ANN Medical Decision Making Medical Records Attestation: I reviewed the patient's medical records. Home Medications Current Medication List: was personally reviewed by me Laboratory Data Attestation: I reviewed the patient's lab results. 04/13/25 19:52 04/13/25 19:52 Lab Results 04/13/25 Range/Units 19:52 WBC 4.37 L (4.8-10.8) K/ul RBC 4.61 (4.20-5.40) M/uL Hgb 13.1 (12.0-16.0) g/dl Hct 40.8 (37.0-47.0) % MCV 88.5 (80.0-100.0) fL MCH 28.4 (25.0-34.0) pg MCHC 32.1 (32.0-36.0) g/dL RDW Std Deviation 44.5 (36.4-46.3) fL RDW Coeff of Juliette 13.6 (11.5-14.5) % Plt Count 178 (130-400) K/uL MPV 10.0 (9.4-12.4) fL Immature Gran % (Auto) 0.0 % Neut % (Auto) 68.0 % Lymph % (Auto) 25.4 % [place] % (Auto) 6.2 % Eos % (Auto) 0.2 % Baso % (Auto) 0.2 % Neut # (Auto) 2.97 (1.40-6.50) K/uL Lymph # (Auto) 1.11 L (1.20-3.40) K/uL [place] # (Auto) 0.27 (0.11-0.59) K/uL Eos # (Auto) 0.01 (0.00-0.50) K/uL Baso # (Auto) 0.01 (0.00-0.20) K/uL Immature Gran # (Auto) 0.00 L (0.01-0.20) K/uL Sodium 137 (136-145) mmol/L Potassium 4.1 (3.5-5.1) mmol/L Chloride 103 (98-107) mmol/L Carbon Dioxide 26 (21-32) mmol/L Anion Gap 8 (3-11) BUN 27 H (6-23) mg/dl Creatinine 0.87 (0.6-1.2) mg/dl Est Cr Clr Drug Dosing 38.0 ml/min eGFR 66.07 BUN/Creatinine Ratio 31.0 H (10-20) Glucose 126 H (70-99(Fasting)) mg/dl Calcium 9.4 (8.6-10.3) mg/dl Total Bilirubin 0.8 (0.2-1.0) mg/dl AST 21 (13-39) U/L ALT 12 (7-52) U/L Alkaline Phosphatase 92 (34-104) U/L Total Protein 7.6 (6.0-8.3) gm/dl Albumin 4.2 (3.4-5.0) gm/dl Globulin 3.4 (2.5-4.0) gm/dl Albumin/Globulin Ratio 1.2 (0.9-2) Imaging Data Attestation: I personally reviewed and interpreted this imaging study as follows: Radiologist's Impression: Lumbar Spine CT 04/13/25 19:45 Exam(s): CT L SPINE EXAM: CT Lumbar Spine Without Intravenous Contrast CLINICAL HISTORY: Reason for exam: Back Pain. TECHNIQUE: Axial computed tomography images of the lumbar spine without intravenous contrast. CTDI is 16.23 mGy and DLP is 416.34 mGy-cm. Automated exposure control was utilized for the study. A dose lowering technique was utilized adhering to the principles of ALARA. COMPARISON: No relevant prior studies available. FINDINGS: Vertebrae: Discogenic disc disease superimposed upon facet and ligamentous hypertrophic changes resulting in moderate bilateral foraminal narrowing at L3-L4. Mild bilateral foraminal narrowing at L2- L3. Moderate bilateral foraminal narrowing at L4-5. Mild bilateral foraminal narrowing at L5-S1. No acute fracture. Discs/spinal canal/neural foramina: See above. Soft tissues: Unremarkable. IMPRESSION: No acute findings in the lumbar spine. Multilevel degenerative changes of the lumbar spine Electronically signed by: Tre Dodson MD 04/13/25 23:06 PM MDM Narrative Prior records/ancillary studies reviewed. Triage Nursing notes reviewed. Additional history obtained from nursing. The patient's history was concerning for back pain. Differential diagnosis: Etiologies such as musculoskeletal, disc herniation, fracture, aortic disease, metastatic disease, cord compression, discitis, infection, renal colic, gastrointestinal, acute exacerbation of chronic back pain, sciatica, cauda equina, as well as others were entertained. Physical findings: As above. No focal neurologic findings noted. ER treatment provided: Toradol, Tylenol and Zofran were ordered Morphine On reassessment the patient felt better. Diagnostics interpreted by me: The labs Independently Interpreted by myself revealed no worrisome leukocytosis Glucose 126 Imaging studies: Imaging was reviewed and read by radiology Consultation: A consultation was placed with hospitalist. The case was discussed and diagnostics were reviewed. She will be evaluated for possible admission. This appears to be consistent with intractable low back pain. Patient is given multiple rounds of pain meds. She was still in severe amount of pain and did not feel comfortable going home. Medicine was consulted case discussed. She will be evaluated for possible admission. By the evaluation outlined above emergent etiologies such as fracture, aortic disease, metastatic disease, infection, renal colic, gastrointestinal, cord compression, cauda equina, as well as others were deemed relatively unlikely. The pt informed about the findings as listed above. All questions were answered and pleased with the treatment. The chart was completed utilizing [employer] Speech voice recognition software. Grammatical errors, random word insertions, pronoun errors, and incomplete sentences are an occassional consequence of this system due to software limitations, ambient noise, and hardware issues. Any formal questions or concerns about the content, text, or information contained within the body of this dictation should be directly addressed to the physician assistant auto center manager for clarification. Impression & Plan Intractable low back pain Discharge Plan Visit Data Chief Complaint: Back Injury/Pain Stated Complaint: Right back pain ED Provider: Hipolito Ignacio ED Midlevel Provider: Cyndee Nieves Discharge Problem: Intractable low back pain Patient Disposition: Being Evaluated by Hospitalist Condition: Good Forms Stand Alone Forms: My [employer] Prescriptions Prescriptions: No Action coenzyme Q10 100 mg capsule 100 mg PO HS rosuvastatin 5 mg tablet 5 mg PO QAM rehkvaedglcl-tsagvpcn-ilnpuy Tablet 1 tab PO QAM donepezil 10 mg tablet 10 mg PO HS Referrals Referrals: Farhan Lang [Primary Care Provider] -
[2025-04-13 20:06] LABS: Hematocrit (blood only) 40.8 % (37.0-47.0); Hemoglobin 13.1 g/dl (12.0-16.0); Immature Granulocytes # (auto) 0.00 K/uL (0.01-0.20); Immature Granulocytes % (auto) 0.0 %; Mean Corpuscular Hemoglobin 28.4 pg (25.0-34.0); Mean Corpuscular Volume 88.5 fL (80.0-100.0); Platelet Count 178 K/uL (130-400); RDW Standard Deviation 44.5 fL (36.4-46.3); Red Blood Count 4.61 M/uL (4.20-5.40); White Blood Count 4.37 K/ul (4.8-10.8)
[2025-04-13 20:25] LABS: Alanine Aminotransferase 12.0 U/L (7-52); Albumin Globulin Ratio 1.2 (0.9-2); Alkaline Phosphatase 92.0 U/L (34-104); Anion Gap 8.0 (3-11); Bilirubin,Total 0.8 mg/dl (0.2-1.0); Blood Urea Nitrogen 27.0 mg/dl (6-23); Calcium 9.4 mg/dl (8.6-10.3); Carbon Dioxide 26.0 mmol/L (21-32); Chloride 103.0 mmol/L (98-107); Creatinine Clr Calc Pharmacy 38.0 ml/min; Globulin 3.4 gm/dl (2.5-4.0); Glucose 126.0 mg/dl (70-99(Fasting)); Potassium 4.1 mmol/L (3.5-5.1); Sodium 137.0 mmol/L (136-145); Total Protein 7.6 gm/dl (6.0-8.3)
[2025-04-13] MEDS: MoRPHine SULFATE 4 MG/ML 1 ML CARP\\VIAL IV STA ×2 (20:50→23:25)
[2025-04-13] MEDS: ONDANSETRON INJ 2 MG/ML 2 ML VIAL IV STA (20:59)
[2025-04-13] MEDS: ONDANSETRON INJ 2 MG/ML 2 ML VIAL ONE (20:59)
--- NOTE | 2025-04-13 23:07 | CT Scan Report ---
Exam(s): CT L SPINE EXAM: CT Lumbar Spine Without Intravenous Contrast CLINICAL HISTORY: Reason for exam: Back Pain. TECHNIQUE: Axial computed tomography images of the lumbar spine without intravenous contrast. CTDI is 16.23 mGy and DLP is 416.34 mGy-cm. Automated exposure control was utilized for the study. A dose lowering technique was utilized adhering to the principles of ALARA. COMPARISON: No relevant prior studies available. FINDINGS: Vertebrae: Discogenic disc disease superimposed upon facet and ligamentous hypertrophic changes resulting in moderate bilateral foraminal narrowing at L3-L4. Mild bilateral foraminal narrowing at L2- L3. Moderate bilateral foraminal narrowing at L4-5. Mild bilateral foraminal narrowing at L5-S1. No acute fracture. Discs/spinal canal/neural foramina: See above. Soft tissues: Unremarkable. IMPRESSION: No acute findings in the lumbar spine. Multilevel degenerative changes of the lumbar spine Electronically signed by: Tre Dodson MD 04/13/25 23:06 PM
--- NOTE | 2025-04-13 23:25 | History & Physical Report ---
Date of Service April 13, 2025 Assessment & Plan (1) Intractable low back pain: Plan 85-year-old female PMHx hypothyroidism, dementia, and hypercholesterolemia presenting for back pain starting 2-3 days [employer]. Her ED evaluation is only significant for multilevel degenerative changes of the lumbar spine with mild leukopenia and hyperglycemia. To be admitted for intractable back pain. #Intractable back pain Starting day of arrival after moving furniture. No loss of bowel/bladder, no saddle anesthesia. No falls or trauma. Straight leg raise (+) R side only. Admission for intractable pain, difficulties ambulating 2/2 pain. - CBC leukopenia (4k), no evidence of infection - CBC am - Lumbar spine CT without acute findings, multilevel degenerative changes of lumbar spine - Pulse ox if continuous opioid use - Lidocaine patch prn - Zofran prn N/V - Acetaminophen prn fever/pain, morphine prn severe pain -- pt was concerned morphine would stop working; if ineffective, can consider adjusting to Dilaudid with caution - MRI pending - PT/OT ordered - appreciate input + recs #Dementia- Donepezil - continue #Hypercholesterolemia- Rosuvastatin - continue Dispo: Obs, med/sx VTE Prophylaxis: SCDs This document was dictated utilizing TRA. Please excuse any grammatical errors that may be secondary to use of this software. Admission and Anticipated Discharge Date Admission Date: 04/13/2025 History of Present Illness Chief Complaint: Back pain Primary Care Provider: Farhan Lang 85-year-old female PMHx hypothyroidism, dementia, and hypercholesterolemia presenting for back pain starting the day of arrival. Pt's helps to provide a history. Reports that on the day of arrival, the patient was trying to clean and ended up moving heavy furniture by herself instead of asking for help. After doing so, she had a gradual onset of low back pain that she describes as "sciatica", R > L side. At its worst, rates the pain a 10/10 on the pain scale in the low back region, but at present she is without any pain. Walking increases pain. Laying flat and still helps alleviate it. Reports that she has some pain into the backs of her legs and occasional heaviness in her calves where her varicose veins are. Denies bowel or bladder incontinence. No numbness/tingling. Pain continued to get worse throughout the day and become unbearable. Was having difficulties ambulating because the pain was so severe. She denies CP, SOB, palpitations, abdominal pain, N/V/D/C, LUTS, or F/C. Again, no falls. No syncope. She has never had this happen before. Her mentions that they are in otherwise good health, and they just recent celebrated their 63rd wedding anniversary. Pt is resting comfortable in bed. ED evaluation reveals CBC with leukopenia 4.37, stable H/H, imm gran 0.00; CMP BUN 27, ratio 31, glucose 126; Ca 9.4; Lumbar spine CT no acute findings, multilevel degenerative changes of lumbar spine.; Provided with Zofran 4mg IV, Morphine 4mg IV, Ketorolac 10mg IV, and acetaminophen 1g IV in ED. Please see Dr. Dubose's attestation for adjustments/additions to treatment plan. Allergies Allergy/AdvReac Type Severity Reaction Status Date / Time Penicillins Allergy Mild RASH Verified 01/17/23 06:12 epinephrine AdvReac Unknown "gave me Verified 01/17/23 06:12 the shakes" Home Medications Medication Instructions Recorded Confirmed Type coenzyme Q10 100 mg capsule 100 mg PO HS 05/04/19 04/13/25 History rosuvastatin 5 mg tablet 5 mg PO QAM 08/04/21 04/13/25 History uszelklcirmv-lxfkmdnd-dgqraa tablet 1 tab PO QAM 01/05/23 04/13/25 History donepezil 10 mg tablet 10 mg PO HS 04/13/25 04/13/25 History Past Med/Surg History Problem List Intractable low back pain (Acute) Subclinical hypothyroidism Hypercholesteremia Chest pain (Acute) Medical History Osteoarthritis Osteopenia HLD (hyperlipidemia) History of supraventricular tachycardia follows with Dr. Stauffer Asthma Chronic rhinitis Hx of diverticulitis of colon Surgical History History of cataract surgery History of tonsillectomy and adenoidectomy History of cholecystectomy History of cardiac radiofrequency ablation Family History Father Aortic valve replaced Coronary heart disease Alzheimer disease Diabetes Pacemaker Mother Diabetes Dementia Macular degeneration Osteoarthritis Osteoporosis Stroke Brother Arteriosclerosis Cancer Cardiovascular disease Diabetes Social History Smoking Status: Never smoker Second Hand Exposure: No; Do You Dip or Chew Tobacco: No; Hx Alcohol Use: No Hx Substance Use: No Preferred Language: [place] Islander Communication Ability: Effective Compounding Pharmacy Technician Required: No Beliefs That Will Affect Care: None Current Living Situation: Spouse Other Information That Helps Us Care for You: No Feels Safe at Home: Yes Safety Concerns: Feels Safe At This Time Assistive Devices: Walker Review of Systems Review of Systems: All systems reviewed & are unremarkable except as noted in Subjective Physical Exam Physical Exam: General: No acute distress Skin: Warm and dry, varicose veins BLE Head: Normocephalic, atraumatic Eyes: PERRL, conjunctivae clear, sclera non-icteric ENT: External ear and ear canal without swelling; nose atraumatic; good dentition, tongue normal appearance, pharynx normal but slightly dry Neck: Supple, no LAD Cardio: RRR, no M/G/R, S1 and S2 normal Resp: No respiratory distress, Lungs CTA in all lobes bilaterally, no wheezes, rales, or rhonchi Abdomen: Soft, symmetric, nontender; No masses or hepatosplenomegaly; Bowel sounds normoactive MSK: No deformities; pulses palpable and equal; no edema; Straight leg raise (-) L side, (+) R side; normal strength to leg raise, dorsiflexion, plantar flexion; reflexes equal; No step off deformities, no midline tenderness. Neuro: Awake, alert; Sensation intact bilaterally; CN grossly intact Psych: Appropriate mood and affect; good judgement and insight. present in room at time of visit. Results & Data Results & Data Vital Signs (Past 12 Hours) Vital Signs Temp Pulse Pulse Resp BP BP Pulse Ox 04/13/25 21:30 59 L 18 117/61 100 04/13/25 19:53 63 04/13/25 19:38 36.9 C 61 19 156/76 H 99 O2 Del Method 04/13/25 21:30 Room Air 04/13/25 19:53 04/13/25 19:38 Room Air Laboratory Results 04/13/25 19:52 WBC 4.37 L RBC 4.61 Hgb 13.1 Hct 40.8 MCV 88.5 MCH 28.4 MCHC 32.1 RDW Std Deviation 44.5 RDW Coeff of Juliette 13.6 Plt Count 178 MPV 10.0 Immature Gran % (Auto) 0.0 Neut % (Auto) 68.0 Lymph % (Auto) 25.4 [place] % (Auto) 6.2 Eos % (Auto) 0.2 Baso % (Auto) 0.2 Neut # (Auto) 2.97 Lymph # (Auto) 1.11 L [place] # (Auto) 0.27 Eos # (Auto) 0.01 Baso # (Auto) 0.01 Immature Gran # (Auto) 0.00 L Sodium 137 Potassium 4.1 Chloride 103 Carbon Dioxide 26 Anion Gap 8 BUN 27 H Creatinine 0.87 Est Cr Clr Drug Dosing 38.0 eGFR 66.07 BUN/Creatinine Ratio 31.0 H Glucose 126 H Calcium 9.4 Total Bilirubin 0.8 AST 21 ALT 12 Alkaline Phosphatase 92 Total Protein 7.6 Albumin 4.2 Globulin 3.4 Albumin/Globulin Ratio 1.2 Diagnostic Findings Lumbar Spine CT 04/13/25 19:45 Exam(s): CT L SPINE EXAM: CT Lumbar Spine Without Intravenous Contrast CLINICAL HISTORY: Reason for exam: Back Pain. TECHNIQUE: Axial computed tomography images of the lumbar spine without intravenous contrast. CTDI is 16.23 mGy and DLP is 416.34 mGy-cm. Automated exposure control was utilized for the study. A dose lowering technique was utilized adhering to the principles of ALARA. COMPARISON: No relevant prior studies available. FINDINGS: Vertebrae: Discogenic disc disease superimposed upon facet and ligamentous hypertrophic changes resulting in moderate bilateral foraminal narrowing at L3-L4. Mild bilateral foraminal narrowing at L2- L3. Moderate bilateral foraminal narrowing at L4-5. Mild bilateral foraminal narrowing at L5-S1. No acute fracture. Discs/spinal canal/neural foramina: See above. Soft tissues: Unremarkable. IMPRESSION: No acute findings in the lumbar spine. Multilevel degenerative changes of the lumbar spine Electronically signed by: Tre Dodson MD 04/13/25 23:06 PM Medications Administered Ondansetron 4mg IV Morphine 4mg IV Ketorolac 10mg IV Acetaminophen 1g IV Code Status & VTE Plan Code Status Full Supervising Physician Co-Signing Physician Notes patient seen and examined, chart reviewed, case discussed with FERNANDO nieves and i agree with the assessment and plan as above Pain management PT/OT No fall, trauma, fever, chills or neurologic findings PG Care Time/CCT Total # of Minutes Spent Total Time Spent with Patient: Total time spent is greater than 50% in coordination of care (as documented) at patient's floor/unit and/or counseling patient: Coding Level of Care Code 40256 INT INP/OBS CARE 2/55MIN Diagnoses Intractable low back pain M54.59
[2025-04-13] MEDS: DONEPEZIL HCL 10 MG TAB PO STA (23:49)
[2025-04-13] MEDS ORDERED: ONDANSETRON INJ 2 MG/ML 2 ML VIAL IV PRN (23:52)
--- NOTE | 2025-04-13 23:54 | Emergency Department Note ---
ED Visit Note I was consulted by the Advanced Practice Provider, Cyndee Wharton. I performed a substantive portion of the visit. This includes aspects of: History: This is an 85-year-old female with a past medical history significant for hyperlipidemia, hypothyroidism and mild neurocognitive dysfunction presenting to the [facility] emergency department for further evaluation of lower back pain. This has been ongoing over the last few days. She is now having issues with ambulation. Patient has no symptoms that would necessarily be concerning for acute cord compression. MDM: Patient was managed with multimodal pain control without improvement. Her back pain is intractable. She had labs and imaging. Labs are only remarkab le for mild leukopenia. CT imaging of the back shows evidence of degenerative changes. The patient will require admission for further workup and possible MRI. Patient was agreeable to this. Patient was discussed with the hospitalist team and they admitted her. Hipolito Ignacio DO Emergency Medicine .
[2025-04-14] MEDS: LIDOCAINE 5% 1 PATCH TD STA (01:04)
[2025-04-14] MEDS: MoRPHine SULFATE 4 MG/ML 1 ML CARP\\VIAL IV PRN (02:31)
[2025-04-14] MEDS ORDERED: ONDANSETRON INJ 2 MG/ML 2 ML VIAL IV PRN (03:10)
[2025-04-14] MEDS: ROSUVASTATIN CALCIUM 5 MG TAB PO SCH (07:28)
--- NOTE | 2025-04-14 10:53 | Electrocardiogram Report ---
Test Reason : Blood Pressure : */* mmHG Vent. Rate : 60 BPM Atrial Rate : 60 BPM P-R Int : 134 ms QRS Dur : 84 ms QT Int : 428 ms P-R-T Axes : 82 82 78 degrees QTcB Int : 428 ms Normal sinus rhythm Normal ECG When compared with ECG of 16-Nov-2021 15:50, No significant change was found Confirmed by Alexander Gunn ([id number]) on 04/14/2025 10:53:02 AM Referred By: REFERRED SELF Confirmed By: Alexander Gunn
--- NOTE | 2025-04-14 11:45 | Hospitalist Progress Note ---
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 Her ED evaluation is only significant for multilevel degenerative changes of the lumbar spine with mild leukopenia and hyperglycemia. To be admitted for intractable back pain. #Intractable back pain Starting day of arrival after moving furniture. No loss of bowel/bladder, no saddle anesthesia. No falls or trauma. Straight leg raise (+) R side only. Admission for intractable pain, difficulties ambulating 2/2 pain. - Lumbar spine CT without acute findings, multilevel degenerative changes of lumbar spine with several areas of mild-moderate foraminal stenosis in lumbar spine. - Lidocaine patch prn, Zofran prn N/V - Acetaminophen prn fever/pain, morphine prn for severe pain - Lumbar MRI: L4-L5 R. foraminal disc protrusion with severe narrowing of R. neural foramen and moderate narrowing of R. lateral recess. Mass effect upon exiting L4 nerve root; Moderate to severe right neural foraminal stenosis at L3- L4 due to osteophytes and facet arthrosis - Ortho consult placed - PT/OT ordered - CBC, BMP QAM #Dementia- Donepezil - continue #Hypercholesterolemia- Rosuvastatin - continue Admission and Anticipated Discharge Date Admission Date: April 13, 2025 Supervising Physician Co-Signing Physician Notes I personally examined the patient and verified rodriguez points of history and exam, discussed case, and agree with decision making and plan documented by Dr. Willingham. Patient is a 85-year-old female with past medical history of dementia, osteopenia, and SVT on admission for acute radicular back pain. History provided by patient and her Eder at bedside. Patient was pushing around furniture when she had a severe pain in her lower lumbar spine that radiated down both legs, right greater than left. Patient could not get off the floor and her brought her to the emergency room. Lumbar spine was unremarkable for acute changes, showed multilevel degenerative changes. MRI performed and revealed right foraminal disc protrusion L4-L5 with severe n arrowing of the right neuroforamina and moderate narrowing of the right lateral recess. Also mass effect on the right L4 nerve root and descending L5 nerve root. Moderate to severe right foraminal stenosis at L3-L4. And mild to moderate central canal stenosis L3-L4. Recommend spine Ortho consult. Working on pain control. Patient will need physical therapy. Subjective Patient is seen this AM resting comfortably. Patient is AxO3, but is slow to respond with some confusion and falling asleep during examination. Patient endorses R. sided low back pain with radiation of pain to R. leg with numbness in her R. calf. Patient remains afebrile and hemodynamically stable. Physical Exam Physical Exam: General: patient resting comfortably, NAD, non-toxic in appearance, AxO3. Skin: warm, dry, intact HEENT: NC/AT, anicteric sclera, conjunctiva without injection, moist mucus membranes. Heart: +S1/S2, regular, no m/r/g Lungs: equal air entry bilaterally, no rales/rhonchi/wheezes Abd: +BS, soft, NT/ND Ext: warm, no clubbing/cyanosis or edema. R. straight leg test positive, decreased sensation in R. medial calf Neuro: nonfocal, speech intact, no facial droop, moving all extremities. Results & Data Results & Data Vital Signs (Past 12 Hours) Vital Signs Temp Pulse Pulse Pulse Resp BP BP 04/14/25 07:15 36.7 C 60 18 04/14/25 04:04 36.8 C 63 16 04/14/25 03:00 36.8 C 63 16 04/14/25 02:28 58 L 15 129/69 04/14/25 01:30 55 L 16 139/79 04/14/25 00:00 54 L BP Pulse Ox O2 Del Method 04/14/25 07:15 117/68 98 Room Air 04/14/25 04:04 136/74 98 Room Air 04/14/25 03:00 136/74 98 Room Air 04/14/25 02:28 99 Room Air 04/14/25 01:30 97 Room Air 04/14/25 00:00 Resident Activity Tracking Resident Involvement: Resident Care Provided Care Provided: Adult Hospital Medicine
--- NOTE | 2025-04-14 11:59 | Magnetic Resonance Report ---
MRI OF THE LUMBAR SPINE WITHOUT CONTRAST CLINICAL HISTORY: Intractable back pain down right leg. COMPARISON STUDY: Lumbar spine CT April 13, 2025. TECHNIQUE: Utilizing a 1.5 Rebecca magnet and dedicated coil, multiplanar, multiecho imaging of the [facility] spine was performed without IV contrast. FINDINGS: For purposes of numbering on this exam, the L5-S1 disc space is assigned to axial image 27 of 30. Heather tebral body heights are maintained. There is slight anterolisthesis of L2 on L3 and L3 on L4 due to f acet arthrosis. Discogenic changes at the L3-L4 level are present. Conus terminates at the mid L1 lev el. No intracanalicular mass or fluid collection. Paravertebral soft tissues are unremarkable. L1-2: The central canal and neural foramen are patent. L2-3: There is mild disc space narrowing with disc bulge, facet arthrosis and ligamentous hypertrophy . There is mild narrowing of the central canal and both neural foramen. L3-4: There is moderate disc space narrowing with disc bulge, facet arthrosis and ligamentous hypertr ophy. There is mild to moderate central canal stenosis. There is mild left neural foraminal stenosis. There is moderate to severe right neural foraminal stenosis due to disc bulge and facet arthrosis. L4-5: There is moderate facet arthrosis and ligamentous hypertrophy. There is a moderate size right f oraminal disc protrusion which results in severe narrowing of the right neural foramen. There is mass effect upon the exiting right L4 nerve root. There is also moderate narrowing of the right lateral r ecess at this level. There is mild left neural foraminal stenosis. L5-S1: There is mild facet arthrosis. The central canal and neural foramen are patent. IMPRESSION: 1. Right foraminal disc protrusion at L4-L5 which results in severe narrowing of the right neural for amen and moderate narrowing of the right lateral recess. There is mass effect upon the exiting right L4 nerve root and mild mass effect upon the descending right L5 nerve root. 2. Moderate to severe right neural foraminal stenosis at L3-L4 due to far lateral disc osteophyte com plex and facet arthrosis. 3. No lumbar spine fractures. 4. Mild to moderate central canal stenosis at L3-L4. ACT 112: Negative or not required by law. Electronically signed by: Diallo Jackson M.D. 04/14/2025 11:57 AM
[2025-04-14] MEDS: REMOVE LIDODERM PATCH SCH (14:54)
[2025-04-14] MEDS: ACETAMINOPHEN 500 MG TAB PO PRN (15:49)
[2025-04-14] MEDS: MoRPHine SULFATE 2 MG/ML CARP IV PRN (16:53)
[2025-04-14] MEDS: DONEPEZIL HCL 10 MG TAB PO SCH (21:04)
[2025-04-15] MEDS: MELATONIN 3 MG TAB PO PRN (02:13)
[2025-04-15 08:02] LABS: Hematocrit (blood only) 37.0 % (37.0-47.0); Hemoglobin 12.5 g/dl (12.0-16.0); Immature Granulocytes # (auto) 0.01 K/uL (0.01-0.20); Immature Granulocytes % (auto) 0.2 %; Mean Corpuscular Hemoglobin 29.9 pg (25.0-34.0); Mean Corpuscular Volume 88.5 fL (80.0-100.0); Platelet Count 165 K/uL (130-400); RDW Standard Deviation 44.2 fL (36.4-46.3); Red Blood Count 4.18 M/uL (4.20-5.40); White Blood Count 6.63 K/ul (4.8-10.8)
[2025-04-15 08:16] LABS: Anion Gap 5.0 (3-11); Blood Urea Nitrogen 23.0 mg/dl (6-23); Calcium 9.0 mg/dl (8.6-10.3); Carbon Dioxide 27.0 mmol/L (21-32); Chloride 105.0 mmol/L (98-107); Creatinine Clr Calc Pharmacy 51.6 ml/min; Glucose 110.0 mg/dl (70-99(Fasting)); Potassium 4.2 mmol/L (3.5-5.1); Sodium 137.0 mmol/L (136-145)
[2025-04-15] MEDS: ACETAMINOPHEN 500 MG TAB PO SCH (08:18)
--- NOTE | 2025-04-15 11:07 | XRay Report ---
XR pelvis 1-2V routine CLINICAL HISTORY: pain, fall COMPARISON: 03/12/2014 FINDINGS: No fracture or dislocation seen. There are minimal degenerative changes at the hips. SI aman ints are unremarkable. IMPRESSION: No pelvic fracture seen. ACT 112: Negative or not required by law. Electronically signed by: Gavin Haley M.D. 04/15/2025 11:06 AM
--- NOTE | 2025-04-15 11:08 | XRay Report ---
XR lumbar spine 2-3V CLINICAL HISTORY: pain, fall COMPARISON STUDY: None FINDINGS: No fracture or subluxation. There is mild diffuse degenerative change of the lumbar spine. IMPRESSION: No lumbar spine fracture seen. ACT 112: Negative or not required by law. Electronically signed by: Gavin Haley M.D. 04/15/2025 11:07 AM
--- NOTE | 2025-04-15 12:25 | Hospitalist Progress Note ---
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 Her ED evaluation is only significant for multilevel degenerative changes of the lumbar spine with mild leukopenia and hyperglycemia. she was admitted for intractable back pain. #Intractable back pain - Starting day of arrival after moving furniture. No loss of bowel/bladder, no saddle anesthesia. No falls or trauma. Straight leg raise (+) R side only. Lumbar spine CT without acute findings, multilevel degenerative changes of lumbar spine with several areas of mild-moderate foraminal stenosis in lumbar spine. Lumbar MRI: L4-L5 R. foraminal disc protrusion with severe narrowing of R. neural foramen and moderate narrowing of R. lateral recess. Mass effect upon exiting L4 nerve root; Moderate to severe right neural foraminal stenosis at L3-L4 due to osteophytes and facet arthrosis pain control: Scheduled Tylenol, as needed tramadol for breakthrough, will continue as needed IV morphine for now however working towards orals in preparation for discharge. Lidocaine patch Orthospine consult placed - PT/OT ordered #Dementia- Donepezil - continue #Hypercholesterolemia- Rosuvastatin - continue dispo: Continued inpatient stay awaiting orthospine evaluation and PT OT for dispo DVT prophylaxis: SCDs updated at bedside 04/15 Admission and Anticipated Discharge Date Admission Date: April 13, 2025 Subjective patient seen lying in bed, present at bedside. She is unsure if she has been out of bed today, her does not think so. States that her pain is improved. She is unsure if Ortho has been around to round on her Review of Systems Review of Systems: All systems reviewed & are unremarkable except as noted in Subjective Physical Exam Physical Exam: General: NAD, VS as above Resp: normal respiratory effort, lungs clear to auscultation CV: RRR, no murmur, Abd: normal bowel sounds, non tender, no hepatosplenomegaly Extremities: Moves all extremities, reports pain with resisted right leg raise off bed. Strength intact to bilateral lower extremities Neuro: dementia, reports at baseline Skin: intact, no lesions noted Results & Data Results & Data Vital Signs (Past 12 Hours) Vital Signs Temp Pulse Resp BP Pulse Ox O2 Del Method 04/15/25 07:13 97.9 F 65 18 123/57 L 97 Room Air Laboratory Results CBC and chemistry reviewed Diagnostic Findings L-spine x-ray and pelvis x-ray reviewed PG Care Time/CCT Total # of Minutes Spent Total Time Spent with Patient: Total time spent is greater than 50% in coordination of care (as documented) at patient's floor/unit and/or counseling patient: Coding Level of Care Code 60032 SUB INP/OBS CARE 2/35MIN Diagnoses Intractable low back pain M54.59 Subclinical hypothyroidism E03.8 Hypercholesteremia E78.00
--- NOTE | 2025-04-15 15:37 | Orthopedic Consultation ---
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 Wetzel to follow * * Patient seen and examined, she has mobilized to the bathroom, recommend pain management evaluation for epidural steroid injection versus transforaminal injection. History of Present Illness Reason for Consultation: . Low back pain, right leg pain Requesting Physician: . Attending Physician: Nataly Pickering MD . Patient is a 85y/o male with low back and right leg pain. PMH including HLD, SVT, asthma, hypercholesterolemia. Presents to hospital with low back and right leg pain. Per patient she had a recent fall injuring the right buttock region, ER notes indicating that patient injured back while moving furniture. Regardless patient complaining of right sided low back, buttock, right upper leg pain that increases with attempted use. Denies tingling, numbness, radiating pain down the leg. Current workup including CT and MRI lumbar spine demonstrating L4-5 disc protrusion resulting in severe foraminal narrowing. Admitted to hospital medicine team secondary to intractable back pain. Sitting comfortably in bed, no acute distress. Endorses orthopedics consulted for management recommendations. At time of exam patient moderate right buttock and upper leg pain at rest that increases with attempted movement of the leg. Again denies pain radiating down the leg, numbness, tingling of the lower leg. Denies changes to bowel or bladder function. Allergies Allergy/AdvReac Type Severity Reaction Status Date / Time Penicillins Allergy Mild RASH Verified 01/17/23 06:12 epinephrine AdvReac Unknown "gave me Verified 01/17/23 06:12 the shakes" Home Medications Medication Instructions Recorded Confirmed Type coenzyme Q10 100 mg capsule 100 mg PO HS 05/04/19 04/13/25 History rosuvastatin 5 mg tablet 5 mg PO QAM 08/04/21 04/13/25 History cvvzmodyyuoa-zpnfhxrh-dkckoa tablet 1 tab PO QAM 01/05/23 04/13/25 History donepezil 10 mg tablet 10 mg PO HS 04/13/25 04/13/25 History Past Med/Surg History Problem List Herniation of intervertebral disc between L4 and L5 Intractable low back pain (Acute) Subclinical hypothyroidism Hypercholesteremia Chest pain (Acute) Medical History Osteoarthritis Osteopenia HLD (hyperlipidemia) History of supraventricular tachycardia follows with Dr. Stauffer Asthma Chronic rhinitis Hx of diverticulitis of colon Surgical History History of cataract surgery History of tonsillectomy and adenoidectomy History of cholecystectomy History of cardiac radiofrequency ablation Family History Father Aortic valve replaced Coronary heart disease Alzheimer disease Diabetes Pacemaker Mother Diabetes Dementia Macular degeneration Osteoarthritis Osteoporosis Stroke Brother Arteriosclerosis Cancer Cardiovascular disease Diabetes Social History Smoking Status: Never smoker Second Hand Exposure: No; Do You Dip or Chew Tobacco: No; Hx Alcohol Use: No Hx Substance Use: No Preferred Language: Stateless Communication Ability: Effective 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 Physical Exam . * General: Alert and oriented, no acute distress * Constitutional: well-developed, well-nourished. * Respiratory: Normal respiratory effort, no distress * Gastrointestinal: No tenderness to palpation, no rigidity or guarding. * Skin: No rash or lesion. * Neurologic: Grossly normal * Musculoskeletal: Lumbar region with no obvious deformity or overlying skin changes. Diffuse TTP midline lumbar spine, paraspinal spasm. No tenderness of the right buttock, upper thigh, or remainder of lower extremity. AROM hip flexion intact but limited secondary to pain of the upper thigh, AROM ankle plantar/dorsiflexion again intact but causes pain at the upper thigh. No pain with logroll. Positive straight leg raise. Sensation intact plantar/dorsal foot. Brisk capillary refill. Results & Data Results & Data Laboratory Results . Diagnostic Findings Lumbar spine MRI 04/14/25 IMPRESSION: 1. Right foraminal disc protrusion at L4-L5 which results in severe narrowing of the right neural foramen and moderate narrowing of the right lateral recess. There is mass effect upon the exiting right L4 nerve root and mild mass effect upon the descending right L5 nerve root. 2. Moderate to severe right neural foraminal stenosis at L3-L4 due to far lateral disc osteophyte complex and facet arthrosis. 3. No lumbar spine fractures. 4. Mild to moderate central canal stenosis at L3-L4. Lumbar spine CT IMPRESSION: No acute findings in the lumbar spine. Multilevel degenerative changes of the lumbar spine Lumbar Spine X-Ray 04/15/25 07:46 XR lumbar spine 2-3V CLINICAL HISTORY: pain, fall COMPARISON STUDY: None FINDINGS: No fracture or subluxation. There is mild diffuse degenerative change of the lumbar spine. IMPRESSION: No lumbar spine fracture seen. ACT 112: Negative or not required by law. Electronically signed by: Gavin Haley M.D. 04/15/2025 11:07 AM Pelvis X-Ray 04/15/25 07:46 XR pelvis 1-2V routine CLINICAL HISTORY: pain, fall COMPARISON: 03/12/2014 FINDINGS: No fracture or dislocation seen. There are minimal degenerative changes at the hips. SI joints are unremarkable. IMPRESSION: No pelvic fracture seen. ACT 112: Negative or not required by law. Electronically signed by: Gavin Haley M.D. 04/15/2025 11:06 AM PG Care Time/CCT Total # of Minutes Spent Total Time Spent with Patient: Total time spent is greater than 50% in coordination of care (as documented) at patient's floor/unit and/or counseling patient: Coding Level of Care Code 11846 IN/OBS CONSULT LVL 4,60M Medical Decision Making Moderate Complexity Diagnoses Herniation of intervertebral disc between L4 and L5 M51.26
--- NOTE | 2025-04-16 08:29 | Pain Management Consultation ---
Date of Consultation April 16, 2025 Assessment & Plan (1) Intractable low back pain: Plan 1. Medrol Dose Hiro was initiated. 2. Lidocaine patch ordered. 3. I would hold on an epidural steroid at this time as she denies any radicular symptoms and states that the pain is mild this morning. 4. Continue Tramadol PRN pain. Morphine if needed for breakthrough pain. 5. Continue Miralax daily for constipation. 6. Recommend physical therapy. 7. Pain in the right upper gluteal region is not reproducible. Not a candidate for trigger point injections. 8. Will follow patient peripherally. History of Present Illness Attending Physician: Nataly Pickering MD History of Present Illness This is an 85-year-old female that has been admitted to the [facility] for ambulatory dysfunction as well as right hip/low back pain. She was moving furniture about a month ago but states that the pain has been ongoing for a week or 2 and does not attribute the moving of furniture to the cause. She describes a dull aching pain along the right upper gluteal region. No radicular symptoms down the leg. Patient states that the pain is very mild this morning and she feels as if she can ambulate without any significant difficulty this morning. At home she was applying an sjlf-tyw-rwhzjyc cream with mild relief. Pain currently 3/10. No bowel/bladder incontinence, saddle anesthesia, foot drop, falls. She does have tramadol ordered for pain as well as as needed IV morphine. She has been able to move her bowels yesterday. She does typically take a fiber drink every day to prevent constipation. Case discussed with Dr. Shanda Gallardo Allergies Allergy/AdvReac Type Severity Reaction Status Date / Time Penicillins Allergy Mild RASH Verified 01/17/23 06:12 epinephrine AdvReac Unknown "gave me Verified 01/17/23 06:12 the shakes" Home Medications Medication Instructions Recorded Confirmed Type coenzyme Q10 100 mg capsule 100 mg PO HS 05/04/19 04/13/25 History rosuvastatin 5 mg tablet 5 mg PO QAM 08/04/21 04/13/25 History xyotpxwrsghc-msncsliz-mhhtpt tablet 1 tab PO QAM 01/05/23 04/13/25 History donepezil 10 mg tablet 10 mg PO HS 04/13/25 04/13/25 History Pain History Previous Imaging and Results Imaging: MRI OF THE LUMBAR SPINE WITHOUT CONTRAST CLINICAL HISTORY: Intractable back pain down right leg. COMPARISON STUDY: Lumbar spine CT April 13, 2025. TECHNIQUE: Utilizing a 1.5 Rebecca magnet and dedicated coil, multiplanar, multiecho imaging of the lumbar spine was performed without IV contrast. FINDINGS: For purposes of numbering on this exam, the L5-S1 disc space is assigned to axial image 27 of 30. Vertebral body heights are maintained. There is slight a nterolisthesis of L2 on L3 and L3 on L4 due to facet arthrosis. Discogenic changes at the L3-L4 level are present. Conus terminates at the mid L1 level. No intracanalicular mass or fluid collection. Paravertebral soft tissues are unremarkable. L1-2: The central canal and neural foramen are patent. L2-3: There is mild disc space narrowing with disc bulge, facet arthrosis and ligamentous hypertrophy. There is mild narrowing of the central canal and both neural foramen. L3-4: There is moderate disc space narrowing with disc bulge, facet arthrosis and ligamentous hypertrophy. There is mild to moderate central canal stenosis. There is mild left neural foraminal stenosis. There is moderate to severe right neural foraminal stenosis due to disc bulge and facet arthrosis. L4-5: There is moderate facet arthrosis and ligamentous hypertrophy. There is a moderate size right foraminal disc protrusion which results in severe narrowing of the right neural foramen. There is mass effect upon the exiting right L4 nerve root. There is also moderate narrowing of the right lateral recess at this level. There is mild left neural foraminal stenosis. L5-S1: There is mild facet arthrosis. The central canal and neural foramen are patent. IMPRESSION: 1. Right foraminal disc protrusion at L4-L5 which results in severe narrowing of the right neural foramen and moderate narrowing of the right lateral recess. There is mass effect upon the exiting right L4 nerve root and mild mass effect upon the descending right L5 nerve root. 2. Moderate to severe right neural foraminal stenosis at L3-L4 due to far lateral disc osteophyte complex and facet arthrosis. 3. No lumbar spine fractures. 4. Mild to moderate central canal stenosis at L3-L4. ACT 112: Negative or not required by law. Electronically signed by: Diallo Jackson M.D. 04/14/2025 11:57 AM Exam(s): CT L SPINE EXAM: CT Lumbar Spine Without Intravenous Contrast CLINICAL HISTORY: Reason for exam: Back Pain. TECHNIQUE: Axial computed tomography images of the lumbar spine without intravenous contrast. CTDI is 16.23 mGy and DLP is 416.34 mGy-cm. Automated exposure control was utilized for the study. A dose lowering technique was utilized adhering to the principles of ALARA. COMPARISON: No relevant prior studies available. FINDINGS: Vertebrae: Discogenic disc disease superimposed upon facet and ligamentous hypertrophic changes resulting in moderate bilateral foraminal narrowing at L3-L4. Mild bilateral foraminal narrowing at L2- L3. Moderate bilateral foraminal narrowing at L4-5. Mild bilateral foraminal narrowing at L5-S1. No acute fracture. Discs/spinal canal/neural foramina: See above. Soft tissues: Unremarkable. IMPRESSION: No acute findings in the lumbar spine. Multilevel degenerative changes of the lumbar spine Electronically signed by: Tre Dodson MD 04/13/25 23:06 PM XR lumbar spine 2-3V CLINICAL HISTORY: pain, fall COMPARISON STUDY: None FINDINGS: No fracture or subluxation. There is mild diffuse degenerative change of the lumbar spine. IMPRESSION: No lumbar spine fracture seen. ACT 112: Negative or not required by law. Electronically signed by: Gavin Haley M.D. 04/15/2025 11:07 AM Patient History Medical History Osteoarthritis Osteopenia HLD (hyperlipidemia) History of supraventricular tachycardia follows with Dr. Stauffer Asthma Chronic rhinitis Hx of diverticulitis of colon Surgical History History of cataract surgery History of tonsillectomy and adenoidectomy History of cholecystectomy History of cardiac radiofrequency ablation Family History Father Aortic valve replaced Coronary heart disease Alzheimer disease Diabetes Pacemaker Mother Diabetes Dementia Macular degeneration Osteoarthritis Osteoporosis Stroke Brother Arteriosclerosis Cancer Cardiovascular disease Diabetes Social History Smoking Status: Never smoker Second Hand Exposure: No; Do You Dip or Chew Tobacco: No; Hx Alcohol Use: No Hx Substance Use: No Preferred Language: [place] Communication Ability: Effective Marketing Rep Required: No Beliefs That Will Affect Care: None Current Living Situation: Spouse Other Information That Helps Us Care for You: No Feels Safe at Home: Yes Safety Concerns: Feels Safe At This Time Assistive Devices: None Physical Exam Physical Exam: GENERAL: This is a well-appearing 85-year-old female in no acute distress. HEAD/FACE: Normocephalic and atraumatic. EYES: No drainage or conjunctival injection. ENT: Nose without bleeding or discharge. Oral mucosa moist. NECK: Full ROM without apparent pain. No swelling or masses noted. RESPIRATORY: Patient with unlabored breathing. No signs of respiratory distress. CHEST/AXILLA: Chest movement symmetrical. No deformities noted. CARDIOVASCULAR: Patients heart rate is regular, with pulse rate as documented. No edema noted. ABDOMEN/GI: No distension BACK: Moves without difficulty. No midline, facet joint, SI joint tenderness. No paravertebral, gluteal, piriformis muscle spasm or trigger points noted. SKIN: [place], warm and dry. No rash noted. MS/EXTREMITY: No swelling, no deformities. Moving extremities appropriately. NEURO: Alert and appears oriented. Speech is fluent. Cranial Nerves are grossly intact. PSYCH: Alert, pleasant, affect is calm
[2025-04-16] MEDS ORDERED: methylPREDNISolone 4 MG TAB, 6 DAY TAPER PO SCH (08:30)
[2025-04-16] MEDS: LIDOCAINE 5% 1 PATCH TD STA (09:21)
[2025-04-16] MEDS: methylPREDNISolone 4 MG TAB PO SCH ×2 (09:21→13:42)
[2025-04-16] MEDS: POLYETHYLENE (MIRALAX) 17 GM PACK PO PRN (10:52)
--- NOTE | 2025-04-16 12:13 | Hospitalist Progress Note ---
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 Her ED evaluation is only significant for multilevel degenerative changes of the lumbar spine with mild leukopenia and hyperglycemia. she was admitted for intractable back pain. #Intractable back pain - Starting day of arrival after moving furniture. No loss of bowel/bladder, no saddle anesthesia. No falls or trauma. Straight leg raise (+) R side only. Lumbar spine CT without acute findings, multilevel degenerative changes of lumbar spine with several areas of mild-moderate foraminal stenosis in lumbar spine. Lumbar MRI: L4-L5 R. foraminal disc protrusion with severe narrowing of R. neural foramen and moderate narrowing of R. lateral recess. Mass effect upon exiting L4 nerve root; Moderate to severe right neural foraminal stenosis at L3-L4 due to osteophytes and facet arthrosis Pain control: Scheduled Tylenol, as needed tramadol for breakthrough, will continue as needed IV morphine for now however working towards orals in preparation for discharge. Lidocaine patch, heat prn Orthospine consult placed - no surgical intervention rec pain management consult Pain management consulted - rec lidocaine patch and medrol dose peter. Steroid injection deferred without radicular symptoms and not a candidate for trigger points - PT/OT ordered #Dementia- Donepezil - continue #Hypercholesterolemia- Rosuvastatin - continue dispo: Continued inpatient stay awaiting PT OT for dispo DVT prophylaxis: SCDs updated at bedside 04/15 & 04/16 Admission and Anticipated Discharge Date Admission Date: April 15, 2025 Subjective Patient seen lying in bed, appears uncomfortable reports pain in the back and down her leg some good appetite no family at bedside Review of Systems Review of Systems: All systems reviewed & are unremarkable except as noted in Subjective Physical Exam Physical Exam: General: NAD, VS as above Resp: normal respiratory effort, lungs clear to auscultation CV: RRR, no murmur, Abd: normal bowel sounds, non tender, no hepatosplenomegaly Extremities: Moves all extremities, reports pain with resisted right leg raise off bed. Strength intact to bilateral lower extremities Neuro: dementia, reports at baseline Skin: intact, no lesions noted Results & Data Results & Data Vital Signs (Past 12 Hours) Vital Signs Temp Pulse Resp BP Pulse Ox O2 Del Method 04/16/25 07:40 97.9 F 67 18 150/70 H 98 Room Air PG Care Time/CCT Total # of Minutes Spent Total Time Spent with Patient: Total time spent is greater than 50% in coordination of care (as documented) at patient's floor/unit and/or counseling patient: Coding Level of Care Code 14418 SUB INP/OBS CARE 2/35MIN Diagnoses Intractable low back pain M54.59 Subclinical hypothyroidism E03.8 Hypercholesteremia E78.00
[2025-04-16] MEDS: REMOVE LIDODERM PATCH SCH (19:37)
[2025-04-16] MEDS ORDERED: REMOVE LIDODERM PATCH SCH (21:00)
[2025-04-17] MEDS: methylPREDNISolone 4 MG TAB PO SCH (06:01)
[2025-04-17] MEDS: LIDOCAINE 5% 1 PATCH TD SCH (08:28)
--- NOTE | 2025-04-17 13:21 | Hospitalist Progress Note ---
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 Her ED evaluation is only significant for multilevel degenerative changes of the lumbar spine with mild leukopenia and hyperglycemia. she was admitted for intractable back pain. #Intractable back pain - Starting day of arrival after moving furniture. No loss of bowel/bladder, no saddle anesthesia. No falls or trauma. Straight leg raise (+) R side only. Lumbar spine CT without acute findings, multilevel degenerative changes of lumbar spine with several areas of mild-moderate foraminal stenosis in lumbar spine. Lumbar MRI: L4-L5 R. foraminal disc protrusion with severe narrowing of R. neural foramen and moderate narrowing of R. lateral recess. Mass effect upon exiting L4 nerve root; Moderate to severe right neural foraminal stenosis at L3-L4 due to osteophytes and facet arthrosis Pain control: Scheduled Tylenol, as needed tramadol for breakthrough, will continue as needed IV morphine for now however working towards orals in preparation for discharge. Lidocaine patch, heat prn Orthospine consult placed - no surgical intervention rec pain management consult Pain management consulted - rec lidocaine patch and medrol dose peter. Steroid injection deferred without radicular symptoms and not a candidate for trigger points - PT/OT - rec rehab #Dementia- Donepezil - continue #Hypercholesterolemia- Rosuvastatin - continue dispo: Continued inpatient stay awaiting safe discharge dispo DVT prophylaxis: SCDs updated at bedside 04/15 & 04/16 & 04/17 Admission and Anticipated Discharge Date Admission Date: April 15, 2025 Subjective patient tearful this morning, reports painful after walking to the bathroom this morning. Says that sometimes her emotions just build up revisited this afternoon with present - doing much better, denies that frequent crying is not an issue at home Review of Systems Review of Systems: All systems reviewed & are unremarkable except as noted in Subjective Physical Exam Physical Exam: General: NAD, VS as above Resp: normal respiratory effort, lungs clear to auscultation CV: RRR, no murmur, Abd: normal bowel sounds, non tender, no hepatosplenomegaly Extremities: Moves all extremities, no edema Neuro: dementia, reports at baseline Skin: intact, no lesions noted Results & Data Results & Data Vital Signs (Past 12 Hours) Vital Signs Temp Pulse Resp BP Pulse Ox O2 Del Method 04/17/25 07:14 98.4 F 62 16 154/65 H 98 Room Air PG Care Time/CCT Total # of Minutes Spent Total Time Spent with Patient: Total time spent is greater than 50% in coordination of care (as documented) at patient's floor/unit and/or counseling patient: Coding Level of Care Code 72875 SUB INP/OBS CARE 09/01MIN Diagnoses Intractable low back pain M54.59 Subclinical hypothyroidism E03.8 Hypercholesteremia E78.00
[2025-04-17] MEDS ORDERED: methylPREDNISolone 4 MG TAB PO SCH (21:00)
[2025-04-18] MEDS ORDERED: methylPREDNISolone 4 MG TAB PO SCH (07:00)
[2025-04-18] MEDS: predniSONE 20 MG TAB PO SCH (09:29)
--- NOTE | 2025-04-18 12:53 | Hospitalist Progress Note ---
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 Her ED evaluation is only significant for multilevel degenerative changes of the lumbar spine with mild leukopenia and hyperglycemia. she was admitted for intractable back pain. #Intractable back pain - Starting day of arrival after moving furniture. No loss of bowel/bladder, no saddle anesthesia. No falls or trauma. Straight leg raise (+) R side only. Lumbar spine CT without acute findings, multilevel degenerative changes of lumbar spine with several areas of mild-moderate foraminal stenosis in lumbar spine. Lumbar MRI: L4-L5 R. foraminal disc protrusion with severe narrowing of R. neural foramen and moderate narrowing of R. lateral recess. Mass effect upon exiting L4 nerve root; Moderate to severe right neural foraminal stenosis at L3-L4 due to osteophytes and facet arthrosis Pain control: Scheduled Tylenol, as needed tramadol for breakthrough, Lidocaine patch, heat prn Orthospine consult placed - no surgical intervention rec pain management consult Pain management consulted - rec lidocaine patch and medrol dose peter. Steroid injection deferred without radicular symptoms and not a candidate for trigger points - PT/OT - rec rehab with worsening mental statussuspect that this is delirium superimposed on dementia with sundowning. However she is on medications that could alter her mental status, hold prednisone/any steroids. Discontinue morphine. Will cont inue tramadol at this time as she takes this at home and does need some pain control for her back. Zyprexa 2.5 mg p.o. twice daily as needed, start Seroquel 25 mg tonight. Frequent reorientation. Also check UA to rule out infection #Dementia- Donepezil - continue #Hypercholesterolemia- Rosuvastatin - continue dispo: Continued inpatient stay awaiting safe discharge dispo DVT prophylaxis: SCDs updated at bedside 04/15 & 04/16 & 04/17 &04/18 Admission and Anticipated Discharge Date Admission Date: April 15, 2025 Supervising Physician Co-Signing Physician Notes The patient was not seen by me. The chart was reviewed. Case discussed with FEDERICO Ramirez. Agree with assessment and plan Subjective patient with more visible emotions. When asked stating she is wants to go home [place] now that her is present. Her responses to if she is having pain are inconsistent. Review of Systems Review of Systems: All systems reviewed & are unremarkable except as noted in Subjective Physical Exam Physical Exam: General: NAD, vitals as above, sitting Up in the chair, asking to go home, does not appear in pain Pulm: breathing unlabored CV: well perfused extremities: moves all extremities Alert and oriented to self only PG Care Time/CCT Total # of Minutes Spent Total Time Spent with Patient: Total time spent is greater than 50% in coordination of care (as documented) at patient's floor/unit and/or counseling patient: Coding Level of Care Code 22255 SUB INP/OBS CARE 2/35MIN Diagnoses Intractable low back pain M54.59 Subclinical hypothyroidism E03.8 Hypercholesteremia E78.00
[2025-04-18 18:26] LABS: Appearance Urine Clear (Clear); Bacteria Urine Automated None Seen (None Seen); Epithelial Cell Urine Auto 0-2 /hpf (0-2); Glucose Urine UA Negative (Negative); RBC Urine Automated 0-2 /hpf (0-2); WBC Urine Automated 0-5 /hpf (0-5)
[2025-04-19] MEDS ORDERED: methylPREDNISolone 4 MG TAB PO SCH (07:00)
--- NOTE | 2025-04-19 12:21 | Hospitalist Progress Note ---
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 Her ED evaluation is only significant for multilevel degenerative changes of the lumbar spine with mild leukopenia and hyperglycemia. she was admitted for intractable back pain. #Intractable back pain - Starting day of arrival after moving furniture. No loss of bowel/bladder, no saddle anesthesia. No falls or trauma. Straight leg raise (+) R side only. Lumbar spine CT without acute findings, multilevel degenerative changes of lumbar spine with several areas of mild-moderate foraminal stenosis in lumbar spine. Lumbar MRI: L4-L5 R. foraminal disc protrusion with severe narrowing of R. neural foramen and moderate narrowing of R. lateral recess. Mass effect upon exiting L4 nerve root; Moderate to severe right neural foraminal stenosis at L3-L4 due to osteophytes and facet arthrosis Pain control: Scheduled Tylenol, as needed tramadol for breakthrough, Lidocaine patch, heat prn Orthospine consult placed - no surgical intervention rec pain management consult Pain management consulted - rec lidocaine patch and medrol dose peter. Steroid injection deferred without radicular symptoms and not a candidate for trigger points - PT/OT - rec rehab - accepted at [facility] awaiting for them to have staffing to accept with worsening mental statussuspect that this is delirium superimposed on dementia with sundowning. However she is on medications that could alter her mental status, hold prednisone/any steroids. Discontinue morphine. Will continue tramadol at this time as she takes this at home and does need some pain control for her back. Zyprexa 2.5 mg p.o. twice daily as needed, start Seroquel 25 mg tonight. Frequent reorientation. UA negative for infection. Behaviors have improved #Dementia- Donepezil - continue started on seroquel as above #Hypercholesterolemia- Rosuvastatin - continue dispo: Continued inpatient stay awaiting for space at [facility] DVT prophylaxis: SCDs updated at bedside 04/15 & 04/16 & 04/17 &04/18 Admission and Anticipated Discharge Date Admission Date: April 15, 2025 Subjective sitting up in the chair, calm today voices no complaints Review of Systems Review of Systems: All systems reviewed & are unremarkable except as noted in Subjective Physical Exam Physical Exam: General: NAD, vitals as above, sitting up in the chair Pulm: breathing unlabored CV: well perfused extremities: moves all extremities Results & Data Results & Data Vital Signs (Past 12 Hours) Vital Signs Temp Pulse Resp BP Pulse Ox O2 Del Method 04/19/25 07:56 97.3 F L 64 16 129/71 96 Room Air Laboratory Results UA reviewed PG Care Time/CCT Total # of Minutes Spent Total Time Spent with Patient: Total time spent is greater than 50% in coordination of care (as documented) at patient's floor/unit and/or counseling patient: Coding Level of Care Code 88682 SUB INP/OBS CARE 09/01MIN Diagnoses Intractable low back pain M54.59 Subclinical hypothyroidism E03.8 Hypercholesteremia E78.00
[2025-04-20] MEDS ORDERED: methylPREDNISolone 4 MG TAB PO SCH (07:00)
--- NOTE | 2025-04-20 13:31 | Hospitalist Progress Note ---
Date of Service April 20, 2025 Assessment & Plan (1) Intractable low back pain: (2) Subclinical hypothyroidism: (3) Hypercholesteremia: Plan 85-year-old female PMHx hypothyroidism, dementia, and hypercholesterolemia presenting for back pain starting 2-3 days [employer] REPA[employer]ER. Her ED evaluation is only significant for multilevel degenerative changes of the lumbar spine with mild leukopenia and hyperglycemia. Lumbar spine CT without acute findings, multilevel degenerative changes of lumbar spine with several areas of mild- moderate foraminal stenosis in lumbar spine. Lumbar MRI: L4-L5 R. foraminal disc protrusion with severe narrowing of R. neural foramen and moderate narrowing of R. lateral recess. Mass effect upon exiting L4 nerve root; Moderate to severe right neural foraminal stenosis at L3-L4 due to osteophytes and facet arthrosis. She was admitted for intractable back pain, now awaiting rehab placement. #Intractable back pain -she was moving furniture ~1 month ago but reports the pain has been ongoing x 1-2 weeks and does not believe moving furniture caused her pain. Describes pain as a dull aching sensation along the right upper gluteal region, no radicular symptoms. No loss of bowel/bladder, no saddle anesthesia. No falls or trauma. - Ortho spine consult: No surgical intervention, recommended pain management consult - Pain management consulted: Recommended lidocaine patch and Medrol Dosepak. Steroid injection deferred without radicular symptoms and not a candidate for trigger point injections - Pain control: Scheduled Tylenol, tramadol PRN breakthrough pain, Lidocaine patch, heat prn - Medrol Dosepak and morphine were discontinued due to exacerbating emotions/behaviors. She was then switched to oral prednisone daily, but emotions/behaviors continued so this was put on hold. She has been more stable emotionally/behaviorally without steroids and has appropriate pain control, so will defer further steroids at this time - PT/OT recommending rehab #Dementia - With worsening mental status suspect that this is delirium superimposed on dementia with sundowning. Discontinued morphine and steroids as above. Will continue tramadol at this time as she takes this at home and does need some pain control for her back - Started Seroquel 25 mg HS, Zyprexa 2.5 mg p.o. twice daily as needed - Continue Donepezil - Frequent reorientation. UA negative for infection. Behaviors have improved #Hypercholesterolemia- Rosuvastatin - continue Dispo: Anticipate discharge to [facility] rehab tomorrow 04/21 DVT prophylaxis: SCDs updated at bedside 04/15 & 04/16 & 04/17 & 04/18 Admission and Anticipated Discharge Date Admission Date: April 15, 2025 Supervising Physician Co-Signing Physician Notes PA Supervision Note: I did not personally see or examine the patient today, but I verified all rodriguez points of FEDERICO Garcia's assessment and plan with the following exceptions/additions: None Subjective Patient seen and evaluated bedside. She reports her back pain is well- controlled at this time. She notes that if she "overdoes it" she does have some back pain. We discussed the plan of being discharged to [facility] for rehab tomorrow. She reports sleeping well and having a fair appetite. No acute complaints or concerns at this time. Physical Exam Physical Exam: General: No acute distress, nondiaphoretic, well-developed, well-nourished. Skin: Warm, dry. No rashes or peripheral edema noted. Cardiac: Well-perfused. Rate in 80s. Pulm: Normal respiratory effort. 96% on room air. Neuro: A&O x2 (person, place - baseline dementia). No focal neurological deficits. Results & Data Results & Data Vital Signs (Past 12 Hours) Vital Signs Temp Pulse Resp BP Pulse Ox O2 Del Method 04/20/25 07:45 97.9 F 80 16 113/66 96 Room Air PG Care Time/CCT Total # of Minutes Spent Total Time Spent with Patient: Total time spent is greater than 50% in coordination of care (as documented) at patient's floor/unit and/or counseling patient: Coding Level of Care Code 82899 SUB INP/OBS CARE 09/01MIN Diagnoses Intractable low back pain M54.59 Subclinical hypothyroidism E03.8 Hypercholesteremia E78.00
[2025-04-21] MEDS ORDERED: methylPREDNISolone 4 MG TAB PO SCH (07:00)
[2025-04-21 08:13] VITALS: BP 124/76; PULSE 68; RESP 16; TEMP 96.8; O2SAT 92
--- NOTE | 2025-04-21 09:20 | Discharge Summary ---
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 Her ED evaluation is only significant for multilevel degenerative changes of the lumbar spine with mild leukopenia and hyperglycemia. Lumbar spine CT without acute findings, multilevel degenerative changes of lumbar spine with several areas of mild- moderate foraminal stenosis in lumbar spine. Lumbar MRI: L4-L5 R. foraminal disc protrusion with severe narrowing of R. neural foramen and moderate narrowing of R. lateral recess. Mass effect upon exiting L4 nerve root; Moderate to severe right neural foraminal stenosis at L3-L4 due to osteophytes and facet arthrosis. She was admitted for intractable back pain, and ultimately discharged to rehab after appropriate pain regimen was achieved. #Intractable back pain - she was moving furniture ~1 month ago but reports the pain has been ongoing x 1-2 weeks and does not believe moving furniture caused her pain. Describes pain as a dull aching sensation along the right upper gluteal region, no radicular symptoms. No loss of bowel/bladder, no saddle anesthesia. No falls or trauma. - Ortho spine consult: No surgical intervention, recommended pain management consult - Pain management consulted: Recommended lidocaine patch and Medrol Dosepak. Steroid injection deferred without radicular symptoms and not a candidate for trigger point injections - Pain control: Scheduled Tylenol, tramadol PRN breakthrough pain, Lidocaine patch, heat prn - Medrol Dosepak and morphine were discontinued due to exacerbating emotions/beh aviors. She was then switched to oral prednisone daily, but emotions/behaviors continued so this was put on hold. She has been more stable emotionally/behaviorally without steroids and has appropriate pain control, so will defer further steroids at this time - PT/OT recommended rehab #Dementia - With worsening mental status suspect that this is delirium superimposed on dementia with sundowning. Discontinued morphine and steroids as above. Will continue tramadol at this time as she takes this at home and does need some pain control for her back - Started Seroquel 25 mg HS, Zyprexa 2.5 mg p.o. twice daily as needed. Can likely wean off in outpatient setting as hospital associated delirium improves - Continue Donepezil - Provided frequent reorientation. UA negative for infection. Behaviors have improved #Hypercholesterolemia- Rosuvastatin - continue Dispo: Discharged to [facility] rehab 04/21 DVT prophylaxis: SCDs updated at bedside 04/15 & 04/16 & 04/17 & 04/18 Notes For Next Care Provider Can likely wean off Seroquel and Zyprexa in outpatient setting as hospital assoc iated delirium improves. Trialed steroids however had worsening mental status/behavior/labile emotions on steroids at they were discontinued. Medication Changes From Visit Tylenol 1000 mg every 8 hours Tramadol 50 mg every 4 hours as needed Lidocaine patch daily Seroquel 25 mg at bedtime Zyprexa 2.5 mg twice daily as needed Admission HPI Per Admitting Provider 85-year-old female PMHx hypothyroidism, dementia, and hypercholesterolemia presenting for back pain starting the day of arrival. Pt's helps to provide a history. Reports that on the day of arrival, the patient was trying to clean and ended up moving heavy furniture by herself instead of asking for help. After doing so, she had a gradual onset of low back pain that she describes as "sciatica", R > L side. At its worst, rates the pain a 10/10 on the pain scale in the low back region, but at present she is without any pain. Walking increases pain. Laying flat and still helps alleviate it. Reports that she has some pain into the backs of her legs and occasional heaviness in her calves where her varicose veins are. Denies bowel or bladder incontinence. No numbness/tingling. Pain continued to get worse throughout the day and become unbearable. Was having difficulties ambulating because the pain was so severe. She denies CP, SOB, palpitations, abdominal pain, N/V/D/C, LUTS, or F/C. Again, no falls. No syncope. She has never had this happen before. Her mentions that they are in otherwise good health, and they just recent celebrated their 65 anniversary. Pt is resting comfortable in bed. ED evaluation reveals CBC with leukopenia 4.37, stable H/H, imm gran 0.00; CMP BUN 27, ratio 31, glucose 126; Ca 9.4; Lumbar spine CT no acute findings, multilevel degenerative changes of lumbar spine.; Provided with Zofran 4mg IV, Morphine 4mg IV, Ketorolac 10mg IV, and acetaminophen 1g IV in ED. Please see Dr. Dubose's attestation for adjustments/additions to treatment plan. Discharge Exam General: No acute distress, nondiaphoretic, well-developed, well-nourished. Skin: Warm, dry. No rashes or peripheral edema noted. Cardiac: Well-perfused. Rate in 70s. Pulm: Normal respiratory effort. 92% on room air. Neuro: A&O x2 (person, place - baseline dementia). No focal neurological deficits. Discharge Plan Discharge Items Patient Disposition: Transfer [facility] Fac Reason For Visit: INTRACTABLE BACK PAIN Discharge Diagnosis: Back pain Condition on Discharge: Good Activity: Per Instructions section Non-emergency contact: Primary Care Provider Call non-emergency contact if: you have any medication questions and your symptoms worsen Follow-up/Referrals: Farhan Lang [Primary Care Provider] - Diet: Heart Healthy Addtl Attending Provider Instructions: Carlos Christian were admitted to the hospital due to intractable back pain. You had imaging studies done of your back which revealed several areas of mild/moderate foraminal stenosis in the lumbar spine. You were evaluated by the orthospine surgeon as well as the pain management team who helped coordinate your treatment plan. Your back pain has improved with your current pain regimen. You are being discharged to [facility] for rehab. Upon discharge from the hospital: * Continue the following pain regimen: Tylenol 1000 mg every 8 hours, tramadol 50 mg every 4 hours as needed for breakthrough pain, lidocaine patch applied to your lumbar spine once daily, heat as needed. * Take Seroquel 25 mg at bedtime. You can likely wean off of this outpatient as your hospital associated delirium improves. * Take Zyprexa 2.5 mg twice daily as needed for agitation. * Continue your other home medications as prescribed. * Follow-up with your PCP in 1-2 weeks. Please return to the hospital if you experience any of the following: Return of your severe back pain, fall with injury, lightheadedness, passing out, chest pain, shortness of breath, new or worsening confusion, or any other symptoms concerning for you. It was a pleasure taking care of you while you were in the hospital! Pending Studies at Discharge: No Stand-Alone Forms: My [facility] Skilled Items Patient informed of condition?: Yes DNR: No Discharge Level of Care: Skilled Communicable Disease: No Discharge Prognosis: Stable Lines: None Urinary Catheter: No Medications and DC Order Prescriptions: New acetaminophen [Tylenol Extra Strength] 500 mg Tablet 1,000 mg PO Q8H Qty: 60 0RF olanzapine 5 mg Tablet,Disintegrating 2.5 mg PO BID PRN (Reason: agitation) Qty: 10 0RF quetiapine 25 mg Tablet 25 mg PO HS Qty: 14 0RF tramadol 50 mg Tablet 50 mg PO Q4H PRN (Reason: pain) Qty: 20 0RF polyethylene glycol 3350 [Miralax] 17 gram Powder In Packet 17 g PO DAILY PRN (Reason: constipation) Qty: 14 0RF lidocaine 5 % Adhesive Patch,Medicated 1 patch transdermal QAM Qty: 15 0RF Continued coenzyme Q10 100 mg capsule 100 mg PO HS rosuvastatin 5 mg tablet 5 mg PO QAM [id number] Tablet 1 tab PO QAM donepezil 10 mg tablet 10 mg PO HS Discharge Orders: Discharge Order (Routine); Ordered 04/21/25 Ordered By: Nataly Bailon/Other Patient Handouts: Relieving Back Pain Admission Data Admit Date/Time: 04/15/25 12:19 Attending Provider: Margot Conti Admit Provider: Angy Dubose Primary Care Provider: Farhan Lang Other Providers: Angy Dubose; Tre Whitaker; Doug Wetzel; Yuliet Gardiner; Ebonie Harrison; Mert Gilbert.; Maksim Davis; Wilmer Duckworth; Mert Gardiner; Shanda Gallardo; Carolyn Ahmadi [facility]; [place] Other Interventions: Discharge Summary Assessment (RN) Last Done: 04/21/25 10:31 Hospital Stay Data Consultations 04/13/25 23:16 ED Decision to Admit Stat 04/14/25 18:10 Consult Orthopedic Spine Surgery Routine 04/15/25 15:38 Consult Pain Management Routine Diagnostic Imagining Performed Lumbar Spine CT 04/13/25 19:45 Exam(s): CT L SPINE EXAM: CT Lumbar Spine Without Intravenous Contrast CLINICAL HISTORY: Reason for exam: Back Pain. TECHNIQUE: Axial computed tomography images of the lumbar spine without intravenous contrast. CTDI is 16.23 mGy and DLP is 416.34 mGy-cm. Automated exposure control was utilized for the study. A dose lowering technique was utilized adhering to the principles of ALARA. COMPARISON: No relevant prior studies available. FINDINGS: Vertebrae: Discogenic disc disease superimposed upon facet and ligamentous hypertrophic changes resulting in moderate bilateral foraminal narrowing at L3-L4. Mild bilateral foraminal narrowing at L2- L3. Moderate bilateral foraminal narrowing at L4-5. Mild bilateral foraminal narrowing at L5-S1. No acute fracture. Discs/spinal canal/neural foramina: See above. Soft tissues: Unremarkable. IMPRESSION: No acute findings in the lumbar spine. Multilevel degenerative changes of the lumbar spine Electronically signed by: Tre Dodson MD 04/13/25 23:06 PM Lumbar Spine MRI 04/14/25 11:02 MRI OF THE LUMBAR SPINE WITHOUT CONTRAST CLINICAL HISTORY: Intractable back pain down right leg. COMPARISON STUDY: Lumbar spine CT April 13, 2025. TECHNIQUE: Utilizing a 1.5 Rebecca magnet and dedicated coil, multiplanar, multiecho imaging of the lumbar spine was performed without IV contrast. FINDINGS: For purposes of numbering on this exam, the L5-S1 disc space is assigned to axial image 27 of 30. Vertebral body heights are maintained. There is slight anterolisthesis of L2 on L3 and L3 on L4 due to facet arthrosis. Discogenic c hanges at the L3-L4 level are present. Conus terminates at the mid L1 level. No intracanalicular mass or fluid collection. Paravertebral soft tissues are unremarkable. L1-2: The central canal and neural foramen are patent. L2-3: There is mild disc space narrowing with disc bulge, facet arthrosis and ligamentous hypertrophy. There is mild narrowing of the central canal and both neural foramen. L3-4: There is moderate disc space narrowing with disc bulge, facet arthrosis and ligamentous hypertrophy. There is mild to moderate central canal stenosis. There is mild left neural foraminal stenosis. There is moderate to severe right neural foraminal stenosis due to disc bulge and facet arthrosis. L4-5: There is moderate facet arthrosis and ligamentous hypertrophy. There is a moderate size right foraminal disc protrusion which results in severe narrowing of the right neural foramen. There is mass effect upon the exiting right L4 nerve root. There is also moderate narrowing of the right lateral recess at this level. There is mild left neural foraminal stenosis. L5-S1: There is mild facet arthrosis. The central canal and neural foramen are patent. IMPRESSION: 1. Right foraminal disc protrusion at L4-L5 which results in severe narrowing of the right neural foramen and moderate narrowing of the right lateral recess. There is mass effect upon the exiting right L4 nerve root and mild mass effect upon the descending right L5 nerve root. 2. Moderate to severe right neural foraminal stenosis at L3-L4 due to far lateral disc osteophyte complex and facet arthrosis. 3. No lumbar spine fractures. 4. Mild to moderate central canal stenosis at L3-L4. ACT 112: Negative or not required by law. Electronically signed by: Diallo Jackson M.D. 04/14/2025 11:57 AM Lumbar Spine X-Ray 04/15/25 07:46 XR lumbar spine 2-3V CLINICAL HISTORY: pain, fall COMPARISON STUDY: None FINDINGS: No fracture or subluxation. There is mild diffuse degenerative change of the lumbar spine. IMPRESSION: No lumbar spine fracture seen. ACT 112: Negative or not required by law. Electronically signed by: Gavin Haley M.D. 04/15/2025 11:07 AM Pelvis X-Ray 04/15/25 07:46 XR pelvis 1-2V routine CLINICAL HISTORY: pain, fall COMPARISON: 03/12/2014 FINDINGS: No fracture or dislocation seen. There are minimal degenerative changes at the hips. SI joints are unremarkable. IMPRESSION: No pelvic fracture seen. ACT 112: Negative or not required by law. Electronically signed by: Gavin Haley M.D. 04/15/2025 11:06 AM Pending Results Patient Have Any Pending Studies at Discharge: No Discharge Instructions Given to Patient (Per Discharging Provider) Anahi, You were admitted to the hospital due to intractable back pain. You had imaging studies done of your back which revealed several areas of mild/moderate foraminal stenosis in the lumbar spine. You were evaluated by the orthospine surgeon as well as the pain management team who helped coordinate your treatment plan. Your back pain has improved with your current pain regimen. You are being discharged to [facility] for rehab. Upon discharge from the hospital: * Continue the following pain regimen: Tylenol 1000 mg every 8 hours, tramadol 50 mg every 4 hours as needed for breakthrough pain, lidocaine patch applied to your lumbar spine once daily, heat as needed. * Take Seroquel 25 mg at bedtime. You can likely wean off of this outpatient as your hospital associated delirium improves. * Take Zyprexa 2.5 mg twice daily as needed for agitation. * Continue your other home medications as prescribed. * Follow-up with your PCP in 1-2 weeks. Please return to the hospital if you experience any of the following: Return of your severe back pain, fall with injury, lightheadedness, passing out, chest pain, shortness of breath, new or worsening confusion, or any other symptoms concerning for you. It was a pleasure taking care of you while you were in the hospital! Supervising Physician Co-Signing Physician Notes FEDERICO Supervision Note: I did not personally see or examine the patient today, but I verified all rodriguez points of FEDERICO Garcia's assessment and plan with the following exceptions/additions: None Total Time Total Time Spent Total Time Spent (In Minutes): Greater than 30 minutes spent completing this discharge process including direct patient care, medication reconciliation, documentation, review of labs and images, and coordination of care. Coding Level of Care Code 71262 INP/OBS DISCH >30 MIN Diagnoses Intractable low back pain M54.59 Subclinical hypothyroidism E03.8 Hypercholesteremia E78.00
== END 2025-04-21 12:16 | DRG 552 ==
LOC: 3N 19:31 → ED 19:31 → SUATTDRO 23:51 → 3N 04-14 02:28 → SUATTDRO 04-15 12:19 → 3N 04-18 16:30